=== PATIENT | female | born 1960 | race Caucasian/White ===

== ENCOUNTER → 2016-03-02 | Outpatient (CLI) | payer MEDICARE ==
[~2016-03-02] MED LIST: ABILIFY 10MG TA10 MG PO; AMBIEN CR12.5 MG PO; AMITRIPTYLINE H25 M1 PO; ANECREAM TOP; ASPIRIN 81M81 MG/TA2 PO; ATIVAN 0.50.5 MG/TAB PO; ATIVAN 1MG T1 MG/TAB PO; BRILINTA90 MG PO; CALAN120 MG PO; CEFTIN500 MG PO; CEPHALEXIN500 M1 PO; CIPRO500 MG PO; CIPRODEX OT; CLOPIDOGREL; CLOPIDOGREL PO; CYMBALTA 60MG60 MG PO; DARVOCET N; DEMEROL 50M50 MG/TAB PO; DEPAKOTE ER 50500 MG PO; DESYREL 100MG100 MG PO; DILANTIN 100MG100 MG PO; DILAUDID 2MG TAB2 MG; DILAUDID 2MG TAB2 MG PO; DOXYCYCLINE 10100 MG PO; FIORICET 325 MG1 TA1 PO; FIORICET 325 MG1 TAB PO; FLEXERIL 1010 MG/TAB PO; FLEXERIL10 MG PO; HALCION; HYZAAR 25 MG-101 TAB PO; HYZAAR 50-12.1 UDTAB PO; KLONOPIN 1MG1 MG PO; LABETALOL PO; LAMICTAL 100MG100 MG PO; LAMICTAL 25MG T25 MG PO; LEVAQUIN 250MG250 MG PO; LEVAQUIN 5500 MG/TAB PO; LEXAPRO 10MG10 MG PO; LEXAPRO10 MG PO; LIPITOR 40MG TA40 MG PO; LIPITOR 80MG80 MG PO; LISINOPRIL20 MG PO; LOPRESSOR 550 MG/TAB PO; LORTAB 5/500 501 TAB PO; LORTAB 7.5/5001 TAB PO; LYRICA; MEPEREDINE50 MG PO; MEPERIDINE HCL50 MG PO; METOPROLOL TART75 MG PO; NAPROSYN500 MG PO; NITROSTAT0.4 MG/TAB SL; NORCO 325 MG-51 TAB PO; NORCO 325 MG-7.1 TAB PO; NORVASC2.5 MG PO; OMNICEF 300MG300 MG PO; PEPCID 20MG TAB20 MG PO; PERCOCET 325 MG1 TA2 PO; PHENERGAN 25 TA25 MG; PHENERGAN 25 TA25 MG PO; PHENERGAN W/CO120 ML PO; PHENERGAN50 MG/SUPP PO; PLAVIX 75MG TAB75 MG PO; PREMARIN .3MG0.3 MG PO; PREMARIN 0.60.625 M1 PO; PREMARIN PO; PRILOSEC 20MG20 MG PO; SEROQUEL 1100 MG/TAB PO; TESSALON P100 MG/CAP PO; TOPAMAX 25MG25 M1 PO; TOPAMAX50 MG PO; TOPROL XL 25MG25 MG PO; TYLENOL 325MG325 MG PO; ULTRAM 50MG TAB50 MG PO; VICODIN 5/5001 UDTAB PO; VOLTAREN 75 DR75 MG PO; XANAX0.25 MG PO; ZESTORETIC 12.51 TA1 PO; ZITHROMAX 250M250 MG PO; ZITHROMAX Z PA250 MG PO; [UNRECOGNIZED DRUG - OTHER]; [UNRECOGNIZED DRUG - REMARK]; bp meds
== END ==
LOC: BHSO 09:46
DX: F31.81 Bipolar II disorder (principal)

== ENCOUNTER 2016-03-09 07:53 | Day surgery (SDC) | payer MEDICARE ==
[~2016-03-09] VITALS: Ht 162.6 cm; Wt 80.0 kg
[2016-03-09] VITALS (575 sets, daily range): BP systolic 116–160; BP diastolic 75–101; PULSE 65–89; TEMP 97.2–98.1; O2SAT 92–99
[~2016-03-09 07:53] MED LIST changes: -ATIVAN 0.50.5 MG/TAB PO; -BRILINTA90 MG PO; -CALAN120 MG PO; -LIPITOR 40MG TA40 MG PO; -METOPROLOL TART75 MG PO; -NITROSTAT0.4 MG/TAB SL; -OMNICEF 300MG300 MG PO; -PERCOCET 325 MG1 TA2 PO; -TOPROL XL 25MG25 MG PO
[2016-03-09] MEDS ORDERED: LAMICTAL 100MG100 MG PO (08:04)
[2016-03-09] MEDS ORDERED: SEROQUEL 1100 MG/TAB PO (08:09)
[2016-03-09] MEDS ORDERED: ATIVAN 0.50.5 MG/TAB PO (08:10)
[2016-03-09] MEDS ORDERED: NITROSTAT0.4 MG/TAB SL (08:11)
[2016-03-09] MEDS ORDERED: TOPROL XL 25MG25 MG PO (08:11)
[2016-03-09 08:42] LABS: HEMOGLOBIN 12.4 g/dl (12.5-16.0); MEAN CELL VOLUME 89 fl (80.0-100.0); MEAN CORPUSCULAR HEMOGLOBIN 30 pg (27.0-31.0); MEAN CORPUSCULAR HGB CONC 34 g/dl (33.0-37.0); PLATELET COUNT 280 K/mm3 (130-400); RED BLOOD COUNT 4.14 M/mm3 (4.10-5.30); REDCELL DISTRIBUTION WIDTH-CV 13.7 % (11.5-14.5); WHITE BLOOD COUNT 6.8 K/mm3 (4.8-10.8)
[2016-03-09 08:57] LABS: INR 1.1 (0.8-3.0); PROTHROMBIN TIME 11.8 SECONDS (9.7-12.8)
[2016-03-09 09:05] LABS: CREATININE, serum 0.64 mg/dL (0.52-1.25); POTASSIUM 3.7 mmol/L (3.4-5.0)
[2016-03-09] MEDS ORDERED: LIPITOR 40MG TA40 MG PO (23:07)
[2016-03-09] MEDS ORDERED: BRILINTA90 MG PO (23:11)
[2016-03-10] VITALS (405 sets, daily range): BP systolic 111–126; BP diastolic 69–78; PULSE 61–65; TEMP 98.2–98.5; O2SAT 93–100
[2016-03-10 06:06] LABS: HEMOGLOBIN 12.1 g/dl (12.5-16.0); MEAN CELL VOLUME 90 fl (80.0-100.0); MEAN CORPUSCULAR HEMOGLOBIN 30 pg (27.0-31.0); MEAN CORPUSCULAR HGB CONC 33 g/dl (33.0-37.0); MEAN PLATELET VOLUME 10.4 fl (7.4-10.4); PLATELET COUNT 276 K/mm3 (130-400); RED BLOOD COUNT 4.07 M/mm3 (4.10-5.30); REDCELL DISTRIBUTION WIDTH-CV 13.6 % (11.5-14.5); WHITE BLOOD COUNT 7.1 K/mm3 (4.8-10.8)
[2016-03-10 06:11] LABS: HEMATOCRIT 36.7 % (37.0-47.0)
[2016-03-10 06:20] LABS: CREATININE, serum 0.72 mg/dL (0.52-1.25); POTASSIUM 3.7 mmol/L (3.4-5.0)
== END 2016-03-10 13:20 | disposition home or self-care (01) ==
LOC: EUO 07:53 → COL.RAD 08:00 → ICU 11:45 → EUO 03-10 13:20
PROVIDERS: Internal Medicine Cardiovascular Disease
DX: I25.110 Atherosclerotic heart disease of native coronary artery with unstable angina pectoris (principal); R94.39 Abnormal result of other cardiovascular function study; E78.5 Hyperlipidemia, unspecified
CPT/HCPCS: OP; C1760; C1769; C1874; C1887; C1894; C9600; J1885; J2250; J2405; J3010; Q9967

== ENCOUNTER → 2016-04-26 | Outpatient (CLI) | payer MEDICARE ==
[~2016-04-26] MED LIST changes: +ATIVAN 0.50.5 MG/TAB PO; +BRILINTA90 MG PO; +CALAN120 MG PO; +LIPITOR 40MG TA40 MG PO; +METOPROLOL TART75 MG PO; +NITROSTAT0.4 MG/TAB SL; +OMNICEF 300MG300 MG PO; +PERCOCET 325 MG1 TA2 PO; +TOPROL XL 25MG25 MG PO
== END ==
LOC: BHSO 10:02
DX: F06.32 Mood disorder due to known physiological condition with major depressive-like episode (principal)

== ENCOUNTER 2016-05-22 16:49 | Emergency (ER) | payer MEDICARE ==
[~2016-05-22] VITALS: Ht 165.1 cm; Wt 81.8 kg
[~2016-05-22 16:49] MED LIST changes: -CALAN120 MG PO; -METOPROLOL TART75 MG PO; -OMNICEF 300MG300 MG PO; -PERCOCET 325 MG1 TA2 PO
[2016-05-22 16:55] VITALS: TEMP 98
[2016-05-22 17:21] LABS: BASO # 0.1 (0.0-0.2); BASO % 0.6 % (0.0-2.0); EOS # 0.2 (0.0-0.7); EOS % 1.6 % (0-4.0); GRAN # 6.7 (1.4-6.5); HEMOGLOBIN 12.9 g/dl (12.5-16.0); LYMPH # 2.6 (1.2-3.4); MEAN CELL VOLUME 90 fl (80.0-100.0); MEAN CORPUSCULAR HEMOGLOBIN 31 pg (27.0-31.0); MEAN CORPUSCULAR HGB CONC 34 g/dl (33.0-37.0); MEAN PLATELET VOLUME 9.9 fl (7.4-10.4); MONO # 0.8 (0.1-0.6); MONO % 7.5 % (1.7-9.3); PLATELET COUNT 327 K/mm3 (130-400); RED BLOOD COUNT 4.22 M/mm3 (4.10-5.30); REDCELL DISTRIBUTION WIDTH-CV 14.2 % (11.5-14.5); WHITE BLOOD COUNT 10.3 K/mm3 (4.8-10.8)
[2016-05-22 17:34] LABS: INR 1.1 (0.8-3.0); PROTHROMBIN TIME 12.5 SECONDS (9.7-12.8)
[2016-05-22 17:36] LABS: ALANINE AMINOTRANSFERASE 31 U/L (9-52); ALBUMIN 4.6 gm/dL (3.5-5.0); ALKALINE PHOSPHATASE 96 U/L (50-136); ANION GAP 13 mmol/L (7-16); BILIRUBIN,TOTAL 0.8 mg/dL (0.0-1.0); BLOOD UREA NITROGEN 16 mg/dL (7-17); CALCIUM 9.5 mg/dL (8.4-10.2); CARBON DIOXIDE 24 mmol/L (22-30); CHLORIDE 104 mmol/L (98-107); GLUCOSE 129 mg/dL (74-106); POTASSIUM 3.2 mmol/L (3.4-5.0); SODIUM 141 mmol/L (137-145); TOTAL PROTEIN 7.3 gm/dL (6.4-8.2)
[2016-05-22 17:37] LABS: PARTIAL THROMBOPLASTIN TIME 30.9 SECONDS (26.0-37.0)
[2016-05-22 17:47] LABS: TROPONIN-I < 0.012 ng/mL (0.000-0.034)
[2016-05-22 20:54] VITALS: BP 121/76; PULSE 67
== END 2016-05-22 20:57 | disposition home or self-care (01) ==
LOC: COL.ER 16:49
PROVIDERS: Emergency Medicine
DX: R07.9 Chest pain, unspecified (principal); R53.1 Weakness; I10 Essential (primary) hypertension; I25.10 Atherosclerotic heart disease of native coronary artery without angina pectoris; Z95.5 Presence of coronary angioplasty implant and graft; Z79.82 Long term (current) use of aspirin
CPT/HCPCS: J2270; J2550

== ENCOUNTER 2016-07-05 11:07 | Emergency (ER) | payer MEDICARE ==
[~2016-07-05] VITALS: Ht 162.6 cm; Wt 79.5 kg
[2016-07-05 11:08] VITALS: TEMP 98.3
[2016-07-05 11:40] LABS: INR 1.1 (0.8-3.0); PROTHROMBIN TIME 11.7 SECONDS (9.7-12.8)
[2016-07-05 11:43] LABS: ADJUSTED CALCIUM 8.9 mg/dL (8.4-10.2); ALANINE AMINOTRANSFERASE 35 U/L (9-52); ALBUMIN 3.6 gm/dL (3.5-5.0); ALKALINE PHOSPHATASE 64 U/L (50-136); ANION GAP 9 mmol/L (7-16); BILIRUBIN,TOTAL 0.6 mg/dL (0.0-1.0); BLOOD UREA NITROGEN 19 mg/dL (7-17); CALCIUM 8.6 mg/dL (8.4-10.2); CARBON DIOXIDE 27 mmol/L (22-30); CHLORIDE 103 mmol/L (98-107); CREATININE, serum 0.83 mg/dL (0.52-1.25); GLUCOSE 114 mg/dL (74-106); PARTIAL THROMBOPLASTIN TIME 25.8 SECONDS (26.0-37.0); POTASSIUM 3.3 mmol/L (3.4-5.0); SODIUM 139 mmol/L (137-145); TOTAL PROTEIN 6.2 gm/dL (6.4-8.2)
[2016-07-05 11:44] LABS: BASO % 0.5 % (0.0-2.0); EOS # 0.1 (0.0-0.7); EOS % 1.5 % (0-4.0); GRAN # 5.3 (1.4-6.5); GRAN % 62.8 % (42.2-75.2); HEMATOCRIT 38.2 % (37.0-47.0); HEMOGLOBIN 12.5 g/dl (12.5-16.0); LYMPH # 2.5 (1.2-3.4); LYMPH % 29.4 % (20.0-51.0); MEAN CELL VOLUME 94 fl (80.0-100.0); MEAN CORPUSCULAR HEMOGLOBIN 31 pg (27.0-31.0); MEAN CORPUSCULAR HGB CONC 33 g/dl (33.0-37.0); MEAN PLATELET VOLUME 9.6 fl (7.4-10.4); MONO # 0.5 (0.1-0.6); MONO % 5.3 % (1.7-9.3); PLATELET COUNT 275 K/mm3 (130-400); RED BLOOD COUNT 4.06 M/mm3 (4.10-5.30); REDCELL DISTRIBUTION WIDTH-CV 14.6 % (11.5-14.5); WHITE BLOOD COUNT 8.4 K/mm3 (4.8-10.8)
[2016-07-05 11:55] LABS: TROPONIN-I < 0.012 ng/mL (0.000-0.034)
[2016-07-05 14:49] VITALS: BP 100/69; PULSE 60
== END 2016-07-05 14:51 | disposition home or self-care (01) ==
LOC: COL.ER 11:07
PROVIDERS: Family Medicine
DX: R07.89 Other chest pain (principal); R55 Syncope and collapse; I10 Essential (primary) hypertension; I25.10 Atherosclerotic heart disease of native coronary artery without angina pectoris; I25.2 Old myocardial infarction; M19.90 Unspecified osteoarthritis, unspecified site; F32.9 Major depressive disorder, single episode, unspecified; F41.9 Anxiety disorder, unspecified; G43.909 Migraine, unspecified, not intractable, without status migrainosus; Z87.891 Personal history of nicotine dependence; Z85.038 Personal history of other malignant neoplasm of large intestine; Z90.710 Acquired absence of both cervix and uterus; Z95.5 Presence of coronary angioplasty implant and graft; Z86.73 Personal history of transient ischemic attack (TIA), and cerebral infarction without residual deficits; Z98.890 Other specified postprocedural states
CPT/HCPCS: J3010; J7030

== ENCOUNTER 2016-08-16 09:25 | Emergency (ER) | payer MEDICARE ==
[~2016-08-16] VITALS: Ht 165.1 cm; Wt 78.2 kg
[2016-08-16 09:28] VITALS: TEMP 97.3
[2016-08-16] MEDS ORDERED: CALAN120 MG PO (09:40)
[2016-08-16 09:59] LABS: BASO % 0.4 % (0.0-2.0); EOS # 0.1 (0.0-0.7); GRAN % 69.8 % (42.2-75.2); HEMATOCRIT 37.9 % (37.0-47.0); HEMOGLOBIN 12.9 g/dl (12.5-16.0); LYMPH # 1.5 (1.2-3.4); LYMPH % 21.2 % (20.0-51.0); MEAN CELL VOLUME 91 fl (80.0-100.0); MEAN CORPUSCULAR HEMOGLOBIN 31 pg (27.0-31.0); MEAN CORPUSCULAR HGB CONC 34 g/dl (33.0-37.0); MEAN PLATELET VOLUME 9.6 fl (7.4-10.4); MONO # 0.5 (0.1-0.6); MONO % 7.2 % (1.7-9.3); PLATELET COUNT 285 K/mm3 (130-400); RED BLOOD COUNT 4.19 M/mm3 (4.10-5.30); REDCELL DISTRIBUTION WIDTH-CV 14.4 % (11.5-14.5); WHITE BLOOD COUNT 7.2 K/mm3 (4.8-10.8)
[2016-08-16 10:09] LABS: INR 1.1 (0.8-3.0); PROTHROMBIN TIME 11.8 SECONDS (9.7-12.8)
[2016-08-16 10:12] LABS: PARTIAL THROMBOPLASTIN TIME 26.9 SECONDS (26.0-37.0)
[2016-08-16 10:25] LABS: ADJUSTED CALCIUM 9.2 mg/dL (8.4-10.2); ALANINE AMINOTRANSFERASE 28 U/L (9-52); ALBUMIN 3.9 gm/dL (3.5-5.0); ALKALINE PHOSPHATASE 74 U/L (50-136); ANION GAP 11 mmol/L (7-16); BILIRUBIN,TOTAL 0.6 mg/dL (0.0-1.0); BLOOD UREA NITROGEN 13 mg/dL (7-17); CALCIUM 9.1 mg/dL (8.4-10.2); CARBON DIOXIDE 23 mmol/L (22-30); CHLORIDE 107 mmol/L (98-107); CREATININE, serum 0.61 mg/dL (0.52-1.25); GLUCOSE 129 mg/dL (74-106); LIPASE 29 U/L (23-300); POTASSIUM 3.1 mmol/L (3.4-5.0); SODIUM 141 mmol/L (137-145); TOTAL PROTEIN 6.6 gm/dL (6.4-8.2)
[2016-08-16 10:36] LABS: B-TYPE NATRIURETIC PEPTIDE 41 pg/mL (0-125)
[2016-08-16 10:43] LABS: PROLACTIN 14.1 ng/mL (3.0-18.6)
[2016-08-16 11:04] LABS: TROPONIN-I < 0.012 ng/mL (0.000-0.034)
[2016-08-16 12:58] VITALS: BP 155/110; PULSE 72
== END 2016-08-16 13:02 | disposition short-term general hospital (02) ==
LOC: COL.ER 09:25
PROVIDERS: Emergency Medicine
DX: Z02.89 Encounter for other administrative examinations (principal)
CPT/HCPCS: J1170; J2405

== ENCOUNTER 2016-08-24 15:02 | Emergency (ER) | payer MEDICARE ==
[~2016-08-24] VITALS: Ht 165.1 cm; Wt 77.3 kg
[~2016-08-24 15:02] MED LIST changes: +CALAN120 MG PO
[2016-08-24 15:09] VITALS: TEMP 98.3
[2016-08-24 16:12] LABS: BASO # 0.1 (0.0-0.2); BASO % 1.1 % (0.0-2.0); EOS # 0.1 (0.0-0.7); EOS % 1.7 % (0-4.0); GRAN # 3.9 (1.4-6.5); HEMATOCRIT 39.8 % (37.0-47.0); HEMOGLOBIN 13.1 g/dl (12.5-16.0); LYMPH % 29.8 % (20.0-51.0); MEAN CELL VOLUME 92 fl (80.0-100.0); MEAN CORPUSCULAR HEMOGLOBIN 30 pg (27.0-31.0); MEAN CORPUSCULAR HGB CONC 33 g/dl (33.0-37.0); MEAN PLATELET VOLUME 10.3 fl (7.4-10.4); MONO # 0.5 (0.1-0.6); MONO % 8.1 % (1.7-9.3); PLATELET COUNT 271 K/mm3 (130-400); RED BLOOD COUNT 4.35 M/mm3 (4.10-5.30); REDCELL DISTRIBUTION WIDTH-CV 14.2 % (11.5-14.5); WHITE BLOOD COUNT 6.6 K/mm3 (4.8-10.8)
[2016-08-24 16:24] LABS: ADJUSTED CALCIUM 9.2 mg/dL (8.4-10.2); ALANINE AMINOTRANSFERASE 27 U/L (9-52); ALBUMIN 4.3 gm/dL (3.5-5.0); ALKALINE PHOSPHATASE 70 U/L (50-136); ANION GAP 12 mmol/L (7-16); BILIRUBIN,TOTAL 0.5 mg/dL (0.0-1.0); BLOOD UREA NITROGEN 13 mg/dL (7-17); CALCIUM 9.4 mg/dL (8.4-10.2); CARBON DIOXIDE 20 mmol/L (22-30); CHLORIDE 109 mmol/L (98-107); CREATININE, serum 0.95 mg/dL (0.52-1.25); GLUCOSE 106 mg/dL (74-106); LIPASE 54 U/L (23-300); POTASSIUM 3.7 mmol/L (3.4-5.0); SODIUM 141 mmol/L (137-145); TOTAL PROTEIN 7.2 gm/dL (6.4-8.2)
[2016-08-24 16:25] LABS: C-REACTIVE PROTEIN < 0.5 mg/dL (0.0-0.9)
[2016-08-24 16:29] LABS: PH 6 (5-8); SQUAMOUS EPITHELIAL 0-2 /hpf; URINE APPEARANCE Clear; URINE BACTERIA Rare /hpf; URINE BILIRUBIN Negative (NEGATIVE); URINE BLOOD Negative (NEGATIVE); URINE COLOR Yellow; URINE GLUCOSE Negative (NEGATIVE); URINE KETONE Negative (NEGATIVE); URINE RBC 0-2 /hpf; URINE UROBILINOGEN Negative (NEGATIVE); URINE WBC 0-2 /hpf
[2016-08-24] MEDS ORDERED: METOPROLOL TART75 MG PO (16:49)
[2016-08-24] MEDS ORDERED: ULTRAM 50MG TAB50 MG PO (19:04)
[2016-08-24 19:19] VITALS: BP 121/89; PULSE 70
== END 2016-08-24 19:19 | disposition home or self-care (01) ==
LOC: COL.ER 15:02
PROVIDERS: Family Medicine
DX: K52.9 Noninfective gastroenteritis and colitis, unspecified (principal); K56.7 Ileus, unspecified; I25.10 Atherosclerotic heart disease of native coronary artery without angina pectoris; Z87.891 Personal history of nicotine dependence; Z95.5 Presence of coronary angioplasty implant and graft; F31.9 Bipolar disorder, unspecified
CPT/HCPCS: J1885; J2405; J7030; Q9967

== ENCOUNTER 2016-09-01 11:55 | Emergency (ER) | payer MEDICARE ==
[~2016-09-01] VITALS: Ht 165.1 cm; Wt 77.3 kg
[2016-09-01 11:55] VITALS: TEMP 97.9
[~2016-09-01 11:55] MED LIST changes: +METOPROLOL TART75 MG PO
[2016-09-01 12:16] LABS: BASO # 0.1 (0.0-0.2); BASO % 0.9 % (0.0-2.0); EOS # 0.1 (0.0-0.7); EOS % 1.4 % (0-4.0); GRAN % 64.7 % (42.2-75.2); HEMATOCRIT 40.6 % (37.0-47.0); HEMOGLOBIN 13.5 g/dl (12.5-16.0); LYMPH % 25.3 % (20.0-51.0); MEAN CELL VOLUME 92 fl (80.0-100.0); MEAN CORPUSCULAR HEMOGLOBIN 31 pg (27.0-31.0); MEAN CORPUSCULAR HGB CONC 33 g/dl (33.0-37.0); MEAN PLATELET VOLUME 9.7 fl (7.4-10.4); MONO # 0.6 (0.1-0.6); MONO % 7.1 % (1.7-9.3); PLATELET COUNT 297 K/mm3 (130-400); RED BLOOD COUNT 4.42 M/mm3 (4.10-5.30); REDCELL DISTRIBUTION WIDTH-CV 14.4 % (11.5-14.5); WHITE BLOOD COUNT 7.8 K/mm3 (4.8-10.8)
[2016-09-01 12:37] LABS: ADJUSTED CALCIUM 9.7 mg/dL (8.4-10.2); ALANINE AMINOTRANSFERASE 24 U/L (9-52); ALBUMIN 4.4 gm/dL (3.5-5.0); ALKALINE PHOSPHATASE 71 U/L (50-136); ANION GAP 13 mmol/L (7-16); BILIRUBIN,TOTAL 0.5 mg/dL (0.0-1.0); BLOOD UREA NITROGEN 11 mg/dL (7-17); CARBON DIOXIDE 20 mmol/L (22-30); CHLORIDE 109 mmol/L (98-107); GLUCOSE 104 mg/dL (74-106); POTASSIUM 4.1 mmol/L (3.4-5.0); SODIUM 141 mmol/L (137-145); TOTAL PROTEIN 7.3 gm/dL (6.4-8.2)
[2016-09-01 12:46] LABS: C-REACTIVE PROTEIN < 0.5 mg/dL (0.0-0.9)
[2016-09-01 12:48] LABS: PH 5 (5-8); SQUAMOUS EPITHELIAL 0-2 /hpf; URINE APPEARANCE Clear; URINE BACTERIA None Seen /hpf; URINE BILIRUBIN Negative (NEGATIVE); URINE BLOOD 1+ (NEGATIVE); URINE COLOR Yellow; URINE GLUCOSE Negative (NEGATIVE); URINE KETONE Negative (NEGATIVE); URINE UROBILINOGEN Negative (NEGATIVE); URINE WBC 0-2 /hpf
[2016-09-01 13:11] LABS: PROLACTIN 86.6 ng/mL (3.0-18.6)
[2016-09-01 13:35] LABS: TROPONIN-I < 0.012 ng/mL (0.000-0.034)
[2016-09-01 13:36] LABS: LIPASE 38 U/L (23-300)
[2016-09-01] MEDS ORDERED: PERCOCET 325 MG1 TA2 PO (15:16)
[2016-09-01] MEDS ORDERED: OMNICEF 300MG300 MG PO (15:16)
[2016-09-01 15:35] VITALS: BP 105/70; PULSE 71
== END 2016-09-01 15:38 | disposition home or self-care (01) ==
LOC: COL.ER 11:55
PROVIDERS: Nurse Practitioner
DX: N12 Tubulo-interstitial nephritis, not specified as acute or chronic (principal); R10.31 Right lower quadrant pain; R11.0 Nausea; G40.909 Epilepsy, unspecified, not intractable, without status epilepticus; I25.10 Atherosclerotic heart disease of native coronary artery without angina pectoris; F32.9 Major depressive disorder, single episode, unspecified; Z95.5 Presence of coronary angioplasty implant and graft
CPT/HCPCS: J0696; J1170; J2405; J3010; J7030; Q9967

== ENCOUNTER → 2016-09-29 | Outpatient (CLI) | payer MEDICARE ==
[~2016-09-29] MED LIST changes: +OMNICEF 300MG300 MG PO; +PERCOCET 325 MG1 TA2 PO
== END ==
LOC: BHSO 10:37
DX: F43.10 Post-traumatic stress disorder, unspecified (principal)

== ENCOUNTER → 2017-06-26 | Outpatient (CLI) | payer MEDICARE ==
[~2017-06-26] MED LIST changes: +LINZESS145CAP; +VERAPAMIL120 MG/TA1 PO; +VOLTAREN GEL 1%1 TU TP; +ZANTAC 150MG T150 MG PO
== END ==
LOC: BHSO 09:13
DX: F31.81 Bipolar II disorder (principal)
CPT/HCPCS: G0463

== ENCOUNTER → 2017-09-11 | Outpatient (CLI) | payer MEDICARE | LOC: BHSO 11:11 | DX: F43.10 Post-traumatic stress disorder, unspecified (principal) | CPT/HCPCS: G0463 ==

== ENCOUNTER 2017-11-04 11:05 | Emergency (ER) | payer MEDICARE ==
[~2017-11-04] VITALS: Ht 165.1 cm; Wt 71.8 kg
[2017-11-04 11:09] VITALS: BP 155/82; TEMP 98.9
[2017-11-04] MEDS ORDERED: NEURONTIN100 MG/CAP PO (11:34)
[2017-11-04] MEDS ORDERED: PRISTIQ 50 MG T50 MG PO (11:41)
[2017-11-04 11:51] LABS: BASO # 0.1 (0.0-0.2); BASO % 0.6 % (0.0-2.0); EOS # 0.2 (0.0-0.7); GRAN # 5.9 (1.4-6.5); GRAN % 66.7 % (42.2-75.2); HEMATOCRIT 37.3 % (37.0-47.0); HEMOGLOBIN 12.3 g/dl (12.5-16.0); LYMPH # 2.2 (1.2-3.4); MEAN CELL VOLUME 92 fl (80.0-100.0); MEAN CORPUSCULAR HEMOGLOBIN 30 pg (27.0-31.0); MEAN CORPUSCULAR HGB CONC 33 g/dl (33.0-37.0); MEAN PLATELET VOLUME 9.7 fl (7.4-10.4); MONO # 0.5 (0.1-0.6); MONO % 5.4 % (1.7-9.3); PLATELET COUNT 286 K/mm3 (130-400); RED BLOOD COUNT 4.05 M/mm3 (4.10-5.30); REDCELL DISTRIBUTION WIDTH-CV 14.1 % (11.5-14.5)
[2017-11-04 12:12] LABS: ERYTHROCYTE SEDIMENTATION RATE 9 mm/hr (0-30)
[2017-11-04 12:18] LABS: ALANINE AMINOTRANSFERASE 22 U/L (9-52); ALBUMIN 3.7 gm/dL (3.5-5.0); ALKALINE PHOSPHATASE 76 U/L (50-136); ANION GAP 6 mmol/L (7-16); AST,SGOT 21 U/L (15-37); BILIRUBIN,TOTAL 0.2 mg/dL (0.0-1.0); BLOOD UREA NITROGEN 8 mg/dL (7-17); C-REACTIVE PROTEIN 0.9 mg/dL (0.0-0.9); CALCIUM 8.5 mg/dL (8.4-10.2); CARBON DIOXIDE 26 mmol/L (22-30); CHLORIDE 105 mmol/L (98-107); CREATININE, serum 0.63 mg/dL (0.52-1.25); GLUCOSE 143 mg/dL (74-106); LIPASE 174 U/L (23-300); MAGNESIUM 1.9 mg/dL (1.6-2.3); PHOSPHOROUS 3.7 mg/dL (2.5-4.5); POTASSIUM 3.6 mmol/L (3.4-5.0); SODIUM 137 mmol/L (137-145); TOTAL PROTEIN 6.5 gm/dL (6.4-8.2)
[2017-11-04 12:29] LABS: TROPONIN-I < 0.012 ng/mL (0.000-0.034)
[2017-11-04 13:50] VITALS: PULSE 86
== END 2017-11-04 13:50 | disposition home or self-care (01) ==
LOC: COL.ER 11:05
PROVIDERS: Emergency Medicine
DX: M79.2 Neuralgia and neuritis, unspecified (principal); M79.7 Fibromyalgia; I25.10 Atherosclerotic heart disease of native coronary artery without angina pectoris; Z86.73 Personal history of transient ischemic attack (TIA), and cerebral infarction without residual deficits; Z79.82 Long term (current) use of aspirin
CPT/HCPCS: J1170

== ENCOUNTER 2017-11-06 09:15 | Emergency (ER) | payer MEDICARE ==
[~2017-11-06] VITALS: Ht 165.1 cm; Wt 73.8 kg
[~2017-11-06 09:15] MED LIST changes: +NEURONTIN100 MG/CAP PO; +PRISTIQ 50 MG T50 MG PO
[2017-11-06 09:19] VITALS: TEMP 99
[2017-11-06 11:06] VITALS: BP 139/93; PULSE 66
[2017-11-07] MEDS ORDERED: CYMBALTA 60MG60 MG PO (00:41)
[2017-11-07] MEDS ORDERED: PLAVIX 75MG TAB75 MG PO (17:28)
[2017-11-07] MEDS ORDERED: MACROBID 1100 MG/CAP PO (17:28)
[2017-11-07] MEDS ORDERED: KEPPRA 500MG500 MG PO (17:29)
[2017-11-07] MEDS ORDERED: ASPIRIN 81M81 MG/TA2 PO (17:29)
[2017-11-07] MEDS ORDERED: LIPITOR 40MG TA40 MG PO (17:39)
[2017-11-07] MEDS ORDERED: TOPROL XL 25MG25 MG PO (17:39)
== END 2017-11-06 11:07 | disposition home or self-care (01) ==
LOC: COL.ER 09:15
DX: I10 Essential (primary) hypertension (principal); M79.7 Fibromyalgia; I25.10 Atherosclerotic heart disease of native coronary artery without angina pectoris; F41.9 Anxiety disorder, unspecified; Z95.9 Presence of cardiac and vascular implant and graft, unspecified; Z90.710 Acquired absence of both cervix and uterus; Z98.890 Other specified postprocedural states; Z79.82 Long term (current) use of aspirin
CPT/HCPCS: J1885; J2060

== ENCOUNTER 2017-11-06 18:29 | Observation (INO) | payer MEDICARE ==
[~2017-11-06] VITALS: Ht 165.1 cm; Wt 72.4 kg
[2017-11-06 19:06] LABS: BASO % 0.4 % (0.0-2.0); EOS # 0.2 (0.0-0.7); EOS % 1.5 % (0-4.0); GRAN # 5.6 (1.4-6.5); GRAN % 57.5 % (42.2-75.2); HEMATOCRIT 40.9 % (37.0-47.0); HEMOGLOBIN 13.6 g/dl (12.5-16.0); LYMPH # 2.9 (1.2-3.4); LYMPH % 29.7 % (20.0-51.0); MEAN CELL VOLUME 91 fl (80.0-100.0); MEAN CORPUSCULAR HEMOGLOBIN 30 pg (27.0-31.0); MEAN CORPUSCULAR HGB CONC 33 g/dl (33.0-37.0); MEAN PLATELET VOLUME 9.7 fl (7.4-10.4); MONO % 10.5 % (1.7-9.3); PLATELET COUNT 321 K/mm3 (130-400); RED BLOOD COUNT 4.52 M/mm3 (4.10-5.30)
[2017-11-06 19:25] LABS: COLLECTION METHOD CLEAN CATCH
[2017-11-06 19:27] LABS: ALANINE AMINOTRANSFERASE 26 U/L (9-52); ALBUMIN 4.1 gm/dL (3.5-5.0); ALKALINE PHOSPHATASE 80 U/L (50-136); ANION GAP 7 mmol/L (7-16); AST,SGOT 24 U/L (15-37); BILIRUBIN,TOTAL 0.3 mg/dL (0.0-1.0); BLOOD UREA NITROGEN 11 mg/dL (7-17); CALCIUM 9.4 mg/dL (8.4-10.2); CARBON DIOXIDE 28 mmol/L (22-30); CHLORIDE 104 mmol/L (98-107); CREATININE, serum 0.79 mg/dL (0.52-1.25); GLUCOSE 117 mg/dL (74-106); POTASSIUM 4.2 mmol/L (3.4-5.0); SODIUM 139 mmol/L (137-145); TOTAL PROTEIN 7.5 gm/dL (6.4-8.2)
[2017-11-06 19:32] LABS: MUCOUS Present /lpf; PH 6 (5-8); SQUAMOUS EPITHELIAL 0-2 /hpf; URINE APPEARANCE Hazy; URINE BACTERIA Occasional /hpf; URINE BILIRUBIN Negative (NEGATIVE); URINE BLOOD 2+ (NEGATIVE); URINE COLOR Yellow; URINE GLUCOSE Negative (NEGATIVE); URINE KETONE Negative (NEGATIVE); URINE LEUKOCYTE ESTERASE Negative (NEGATIVE); URINE NITRATE Positive (NEGATIVE); URINE PROTEIN(semi-quant) 1+ (NEGATIVE); URINE UROBILINOGEN Negative (NEGATIVE)
[2017-11-06 19:43] LABS: TROPONIN-I < 0.012 ng/mL (0.000-0.034)
[2017-11-07] MEDS ORDERED: CYMBALTA 60MG60 MG PO (00:41)
[2017-11-07 01:06] VITALS: BP 151/83; PULSE 69; TEMP 98.6
[2017-11-07 03:31] VITALS: BP 130/88; PULSE 65; TEMP 98.5
[2017-11-07 04:49] LABS: TRICYCLIC ANTIDEPRESS URINE NEGATIVE
[2017-11-07 07:06] VITALS: BP 120/64; PULSE 75; TEMP 97.8
[2017-11-07 08:34] LABS: CHOLESTEROL RISK RATIO 5.2
[2017-11-07 15:06] VITALS: BP 134/74; PULSE 80; TEMP 98.6
[2017-11-07] MEDS ORDERED: MACROBID 1100 MG/CAP PO (17:28)
[2017-11-07] MEDS ORDERED: PLAVIX 75MG TAB75 MG PO (17:28)
[2017-11-07] MEDS ORDERED: ASPIRIN 81M81 MG/TA2 PO (17:29)
[2017-11-07] MEDS ORDERED: KEPPRA 500MG500 MG PO (17:29)
[2017-11-07] MEDS ORDERED: TOPROL XL 25MG25 MG PO (17:39)
[2017-11-07] MEDS ORDERED: LIPITOR 40MG TA40 MG PO (17:39)
== END 2017-11-07 19:24 | disposition home or self-care (01) ==
LOC: COL.ER 18:29 → MEDICAL 23:18
PROVIDERS: Emergency Medicine; Nurse Practitioner
DX: I16.0 Hypertensive urgency (principal); R56.9 Unspecified convulsions; I10 Essential (primary) hypertension; I25.10 Atherosclerotic heart disease of native coronary artery without angina pectoris; N39.0 Urinary tract infection, site not specified; E78.5 Hyperlipidemia, unspecified; F12.20 Cannabis dependence, uncomplicated; Z90.49 Acquired absence of other specified parts of digestive tract; Z90.710 Acquired absence of both cervix and uterus; Z86.73 Personal history of transient ischemic attack (TIA), and cerebral infarction without residual deficits; Z85.038 Personal history of other malignant neoplasm of large intestine; Z87.891 Personal history of nicotine dependence; Z88.0 Allergy status to penicillin; Z88.2 Allergy status to sulfonamides; Z80.0 Family history of malignant neoplasm of digestive organs
CPT/HCPCS: A9585; G0378; J1650; J1953; J2405; J7030

== ENCOUNTER → 2018-03-21 | Outpatient (CLI) | payer MEDICARE ==
[~2018-03-21] MED LIST changes: +KEPPRA 500MG500 MG PO; +MACROBID 1100 MG/CAP PO
== END ==
LOC: BHSO 14:41
DX: F43.10 Post-traumatic stress disorder, unspecified (principal)
CPT/HCPCS: G0463

== ENCOUNTER → 2018-10-21 | Outpatient (CLI) | payer MEDICARE | LOC: BHSO 09:02 | DX: F31.81 Bipolar II disorder (principal) | CPT/HCPCS: G0463 ==

== ENCOUNTER 2019-06-02 19:24 | Inpatient (IN) | payer MEDICARE ==
[~2019-06-02] VITALS: Ht 165.1 cm; Wt 79.2 kg
[2019-06-02 19:51] LABS: BASO # 0.1 (0.0-0.2); EOS # 0.3 (0.0-0.7); EOS % 3.3 % (0-4.0); GRAN # 4.9 (1.4-6.5); GRAN % 52.3 % (42.2-75.2); HEMATOCRIT 39.2 % (37.0-47.0); HEMOGLOBIN 12.9 g/dl (12.5-16.0); LYMPH # 3.3 (1.2-3.4); MEAN CELL VOLUME 88 fl (80.0-100.0); MEAN CORPUSCULAR HEMOGLOBIN 29 pg (27.0-31.0); MEAN CORPUSCULAR HGB CONC 33 g/dl (33.0-37.0); MEAN PLATELET VOLUME 9.6 fl (7.4-10.4); MONO # 0.8 (0.1-0.6); MONO % 8.2 % (1.7-9.3); PLATELET COUNT 348 K/mm3 (130-400); RED BLOOD COUNT 4.45 M/mm3 (4.10-5.30); REDCELL DISTRIBUTION WIDTH-CV 14.9 % (11.5-14.5)
[2019-06-02 19:53] LABS: INR 0.9 (0.8-3.0); PROTHROMBIN TIME 10.6 SECONDS (9.7-12.8)
[2019-06-02 19:55] LABS: PARTIAL THROMBOPLASTIN TIME 32.2 SECONDS (26.0-37.0)
[2019-06-02 19:58] LABS: ALANINE AMINOTRANSFERASE 19 U/L (4-34); ALBUMIN 4.2 gm/dL (3.5-5.0); ALKALINE PHOSPHATASE 91 U/L (50-136); ANION GAP 6 mmol/L (7-16); AST,SGOT 25 U/L (15-37); BILIRUBIN,TOTAL 0.4 mg/dL (0.0-1.0); BLOOD UREA NITROGEN 11 mg/dL (7-17); CARBON DIOXIDE 25 mmol/L (22-30); CHLORIDE 107 mmol/L (98-107); GLUCOSE 96 mg/dL (74-106); POTASSIUM 4.2 mmol/L (3.4-5.0); SODIUM 138 mmol/L (137-145); TOTAL PROTEIN 7.4 gm/dL (6.4-8.2)
[2019-06-02 20:14] LABS: TROPONIN-I < 0.012 ng/mL (0.000-0.035)
--- NOTE | 2019-06-02 23:55 | NUR ---
RECIEVED REPORT FROM CHRISS GOOD. PATIENT STABLE AT THIS TIME.
[2019-06-03] VITALS (251 sets, daily range): BP systolic 122–179; BP diastolic 58–101; PULSE 56–81; TEMP 97.4–98.7; O2SAT 83–100
--- NOTE | 2019-06-03 00:20 | NUR ---
PATIENT ARRIVED ON STRETCHER WITH CHRISS RINALDI. PATIENT STABLE AT THIS TIME AND ON A HEPARIN AND NITRO GTT WELL NS IVF.
[2019-06-03 00:33] LABS: MAGNESIUM 2.4 mg/dL (1.6-2.3)
[2019-06-03] MEDS ORDERED: KLONOPIN 0.5MG0.5 MG PO (01:10)
--- NOTE | 2019-06-03 03:36 | NUR ---
PATIENT HAD A MIGRAINE AND HAD SEVERE NAUSEA WITH VOMITTING
[2019-06-03 06:12] LABS: BASO # 0.1 (0.0-0.2); BASO % 0.8 % (0.0-2.0); EOS # 0.2 (0.0-0.7); EOS % 2.3 % (0-4.0); GRAN # 5.1 (1.4-6.5); GRAN % 61.2 % (42.2-75.2); HEMOGLOBIN 12.2 g/dl (12.5-16.0); LYMPH # 2.4 (1.2-3.4); LYMPH % 28.6 % (20.0-51.0); MEAN CELL VOLUME 89 fl (80.0-100.0); MEAN CORPUSCULAR HEMOGLOBIN 30 pg (27.0-31.0); MEAN CORPUSCULAR HGB CONC 33 g/dl (33.0-37.0); MEAN PLATELET VOLUME 9.5 fl (7.4-10.4); MONO # 0.6 (0.1-0.6); MONO % 6.9 % (1.7-9.3); PLATELET COUNT 314 K/mm3 (130-400); RED BLOOD COUNT 4.13 M/mm3 (4.10-5.30); REDCELL DISTRIBUTION WIDTH-CV 14.9 % (11.5-14.5)
[2019-06-03 06:15] LABS: HEMATOCRIT 36.9 % (37.0-47.0)
[2019-06-03 06:22] LABS: ALANINE AMINOTRANSFERASE 17 U/L (4-34); ALBUMIN 3.9 gm/dL (3.5-5.0); ALKALINE PHOSPHATASE 88 U/L (50-136); ANION GAP 4 mmol/L (7-16); AST,SGOT 22 U/L (15-37); BILIRUBIN,TOTAL 0.4 mg/dL (0.0-1.0); BLOOD UREA NITROGEN 12 mg/dL (7-17); CALCIUM 8.8 mg/dL (8.4-10.2); CARBON DIOXIDE 26 mmol/L (22-30); CHLORIDE 107 mmol/L (98-107); CHOLESTEROL 291 mg/dL (120-200); CHOLESTEROL RISK RATIO 4.7; CREATININE, serum 0.52 (0.52-1.25); GLUCOSE 116 mg/dL (74-106); HDL CHOLESTEROL 61 mg/dL; LDL CHOLESTEROL 197 mg/dL; POTASSIUM 4.2 mmol/L (3.4-5.0); SODIUM 137 mmol/L (137-145); TOTAL PROTEIN 6.8 gm/dL (6.4-8.2); TRIGLYCERIDE 166 mg/dL
[2019-06-03 06:34] LABS: TROPONIN-I < 0.012 ng/mL (0.000-0.035)
--- NOTE | 2019-06-03 07:30 | NUR ---
GAVE REPORT TO CHRISS CAST.
--- NOTE | 2019-06-03 07:47 | NUR ---
Pt nauseated and vomiting complaining of headache 09/14 - nitroglycerine gtt infusing at 5mcg/min MD Sophia called - Nitroglycerine gtt ordered to be discontinued - order carried out. Pt education provided
--- NOTE | 2019-06-03 08:52 | NUR ---
Pt to CathLab with CHRISS Barnes
--- NOTE | 2019-06-03 09:13 | NUR ---
SEE MERGE DOCUMENTATION FOR MEDICATION ADMINISTRATION TIMES AND INTRA/POST PROCEDURE SEDATION ASSESSMENT. PLAN FOR RIGHT FEMORAL ACCESS PER MD.
--- NOTE | 2019-06-03 10:10 | NUR ---
Patient returns from label drier. Right groin site with dressing CDI, no hematoma noted. Pulses palpable BLE. Reviewed bedrest/lay flat for four hours patient, verbalized understanding.
--- NOTE | 2019-06-03 11:05 | NUR ---
ART met with the patient to discuss discharge plan. The patient lives in [place] with her , Willie Bird (ph#[phone]), and their five adopted children. She reports independence with ADLs and does not have any DME. The patient does not have a PCP. She reports that she would like to get set up with her 's PCP, Dr. Chapin Petersen. ART contacted Dr. Petersen's office. The testing lead reports that Dr. Petersen is not accepting any patient's at this time, but his RN is going to check with him to see if he would accept the patient. She informed ART to call after 1400 to follow up on his decision. SW informed the patient of this. ART offered the patient a list of the different providers if [place], if Dr. Petersen is not able to accept. The patient was not interested in taking the list at this time. She receives her medications at [facility] and she reports difficulties affording her medications. She states that she does not have presciption coverage on her insurance. She states that she plans to enroll in presciption coverage. She states that she utilizes [facility]. ART discussed [facility] and provided her with their contact information. The patient reports that she is on social security disability. ART discussed applying for Medicaid. The patient was interested in this. ART consulted Financial Counselor, Ankit. The patient does not have advanced directives completed. The patient plans to return back home with her family upon discharge. SW to continue to follow.
--- NOTE | 2019-06-03 13:07 | NUR ---
Patient nauseated and vomiting.
--- NOTE | 2019-06-03 13:55 | NUR ---
Patient alert and oriented, answers questions appropriately. Patient has had multiple epidoses of anxiety throughout the morning. Appears to be resting comfortably in bed at this time.
--- NOTE | 2019-06-03 14:14 | NUR ---
ART contacted Dr. Petersen's office to follow up on his decision. The traveling engineer reports that Dr. Petersen did accept the patient and that his RN would be the one to schedule an appointment. She transferred ART to Dr. Petersen's RN. ART left a voicemail for his RN. ART to update the patient and will continue to follow.
--- NOTE | 2019-06-03 16:18 | NUR ---
ART received a phone call back from Dr. Petersen's RN. His RN reports that they do not like to make hospital follow up appointments, until the patient is ready to discharge. She requested that ART or hospital staff call back and schedule an appointment when ready to discharge. ART notified the bacteriologist medical of this. SW to continue to follow.
--- NOTE | 2019-06-03 18:51 | NUR ---
Patient arrived to unit and has been very nauseous. Patient complaining of a migrain and reporting that morphine was not touching the pain. Call placed to Dr. Pimentel see one time order for Tordal and Vistaril. Will continue to monitor.
--- NOTE | 2019-06-03 19:01 | NUR ---
Patient having anxiety and was given ativan with good effect. Patient currently sleeping in bed, migrain has deminished and patient's nausea has gone away. Patient refused her supper meal due to the nausea. Patient denies questions at this time.
--- NOTE | 2019-06-03 19:30 | NUR ---
Patient assessed at this time. Alert and oriented x 4, and able to make needs known. Complained of level 5 headache, and given PRN APAP. Peripheral IVs to left and right AC. Denies SOB and dyspnea. LS CTA. Respirations even and unlabored. HRR. Telemetry in place. Capillary refill less than 3 seconds. Non-tenting skin turgor. BSAx4. Abdomen soft and non-tender. No edema. Dressing to right groin has small amount of bloody drainage at top and right side. Boarders marked. No increase in size. Voices no questions, needs, or concerns at this time. Resting in bed with call light within reach.
[2019-06-04 00:06] VITALS: BP 91/49; PULSE 76; TEMP 98.6
[2019-06-04 00:13] VITALS: BP 104/62
[2019-06-04 04:31] VITALS: BP 102/62; PULSE 72; TEMP 97.9
--- NOTE | 2019-06-04 05:27 | NUR ---
Patient has been resting in bed with eyes closed. Has denied having headaches and pain since receiving PRN APAP last night. Reports that she slept much better last night. Voices no questions, needs, or concerns at this time. Call light is within reach.
[2019-06-04 07:58] VITALS: BP 111/60; PULSE 88; TEMP 97.4
--- NOTE | 2019-06-04 08:20 | NUR ---
PT IN BED COMPLAINING OF A HEADACHE 02/14, REQUESTING TYLENOL WITH MORNING MEDICATIONS, MORNING MEDS GIVEN, ASSESSMENT PERFORMED, PT R GROIN DID NOT DRAIN PAST SHARPIE BORDER. DRY AND INTACT. PT IN PLEASANT MOOD DISCUSSING DISCHARGE BACK TO HER FAMILY. BED IN LOW POSITION, WATER AT BEDSIDE, CALL LIGHT AND PHONE WITHIN REACH, NO OTHER NEEDS AT THIS TIME.
--- NOTE | 2019-06-04 11:19 | NUR ---
First visit from the deputy county clerk. No needs right now.
[2019-06-04] MEDS ORDERED: TOPROL XL 25MG25 MG PO (11:53)
[2019-06-04] MEDS ORDERED: PRINIVIL5 MG PO (11:53)
[2019-06-04] MEDS ORDERED: LIPITOR 40MG TA40 MG PO (11:53)
--- NOTE | 2019-06-04 12:31 | NUR ---
Senior Science Consultant attended clinical rounds with the team. Patient to discharge home today. ART scheduled a follow up appointment with Dr. Petersen's midlevel, [facility] for 06/11/19 @ 900. SW provided appointment to patient and to the community development officer. No additional needs at this time.
--- NOTE | 2019-06-04 13:24 | NUR ---
DISCHARGE EDUCATION PROVIDED, IV DISCONTINUED, PT CALLED TO PICK HER UP. PT WALKED OUT WITH [facility], WITNESSED GETTING INTO PT VEHICLE WITH AND DAUGHTER.
== END 2019-06-04 13:26 | disposition home or self-care (01) | DRG 287 ==
LOC: COL.ER 19:24 → ICU 23:13 → IMCU 06-03 09:57 → MEDICAL 06-03 15:10
PROVIDERS: Emergency Medicine; Nurse Practitioner Family; ADMIT Internal Medicine
PROC: 4A023N8 Measurement of Cardiac Sampling and Pressure, Bilateral, Percutaneous Approach (ICD-10-PCS; principal; 2019-06-03)
PROC: B2151ZZ Fluoroscopy of Left Heart using Low Osmolar Contrast (ICD-10-PCS; 2019-06-03)
PROC: B2111ZZ Fluoroscopy of Multiple Coronary Arteries using Low Osmolar Contrast (ICD-10-PCS; 2019-06-03)
PROC: 4A023N6 Measurement of Cardiac Sampling and Pressure, Right Heart, Percutaneous Approach (ICD-10-PCS; 2019-06-03)
DX: I16.0 Hypertensive urgency (principal); I69.951 Hemiplegia and hemiparesis following unspecified cerebrovascular disease affecting right dominant side; I25.10 Atherosclerotic heart disease of native coronary artery without angina pectoris; E78.5 Hyperlipidemia, unspecified; G40.909 Epilepsy, unspecified, not intractable, without status epilepticus; F31.9 Bipolar disorder, unspecified; G47.00 Insomnia, unspecified; Z95.818 Presence of other cardiac implants and grafts; Z85.038 Personal history of other malignant neoplasm of large intestine; Z90.49 Acquired absence of other specified parts of digestive tract; Z90.710 Acquired absence of both cervix and uterus; Z87.891 Personal history of nicotine dependence; Z91.14 Patient's other noncompliance with medication regimen
CPT/HCPCS: 99223-AI; 99239; J0360; J1644; J1885; J2060; J2250; J2270; J2405; J2550; J3010; J7030; Q9967

== ENCOUNTER → 2019-06-05 | Outpatient (CLI) | payer MEDICARE ==
[~2019-06-05] MED LIST changes: +ATARAX50 MG PO; +CLEOCIN HCL300 MG PO; +COREG 6.256.25 MG/TA PO; +KEPPRA1000 MG PO; +KLONOPIN 0.5MG0.5 MG PO; +LEVAQUIN 750MG750 M1 PO; +PRINIVIL10 MG PO; +PRINIVIL5 MG PO
== END ==
LOC: BHSO 11:20
DX: F43.10 Post-traumatic stress disorder, unspecified (principal)
CPT/HCPCS: G0463

== ENCOUNTER 2019-06-09 19:17 | Emergency (ER) | payer MEDICARE ==
[~2019-06-09] VITALS: Ht 165.1 cm; Wt 79.5 kg
[~2019-06-09 19:17] MED LIST changes: -ATARAX50 MG PO; -CLEOCIN HCL300 MG PO; -COREG 6.256.25 MG/TA PO; -KEPPRA1000 MG PO; -LEVAQUIN 750MG750 M1 PO; -PRINIVIL10 MG PO
[2019-06-09] MEDS ORDERED: LIPITOR 40MG TA40 MG PO (19:51)
[2019-06-09] MEDS ORDERED: TOPROL XL 25MG25 MG PO (19:51)
[2019-06-09] MEDS ORDERED: PRINIVIL5 MG PO (19:52)
[2019-06-09] MEDS ORDERED: LAMICTAL 25MG T25 MG PO (19:55)
[2019-06-09 19:57] LABS: BASO # 0.1 (0.0-0.2); BASO % 0.8 % (0.0-2.0); EOS # 0.3 (0.0-0.7); EOS % 3.1 % (0-4.0); GRAN # 5.5 (1.4-6.5); GRAN % 55.7 % (42.2-75.2); HEMATOCRIT 37.3 % (37.0-47.0); HEMOGLOBIN 12.1 g/dl (12.5-16.0); LYMPH # 3.2 (1.2-3.4); LYMPH % 32.8 % (20.0-51.0); MEAN CELL VOLUME 89 fl (80.0-100.0); MEAN CORPUSCULAR HEMOGLOBIN 29 pg (27.0-31.0); MEAN CORPUSCULAR HGB CONC 32 g/dl (33.0-37.0); MEAN PLATELET VOLUME 9.7 fl (7.4-10.4); MONO # 0.7 (0.1-0.6); MONO % 7.2 % (1.7-9.3); PLATELET COUNT 333 K/mm3 (130-400); RED BLOOD COUNT 4.19 M/mm3 (4.10-5.30); REDCELL DISTRIBUTION WIDTH-CV 14.9 % (11.5-14.5)
[2019-06-09 20:01] LABS: ALANINE AMINOTRANSFERASE 17 U/L (4-34); ALBUMIN 4.3 gm/dL (3.5-5.0); ALKALINE PHOSPHATASE 92 U/L (50-136); ANION GAP 6 mmol/L (7-16); AST,SGOT 21 U/L (15-37); BILIRUBIN,TOTAL 0.2 mg/dL (0.0-1.0); BLOOD UREA NITROGEN 15 mg/dL (7-17); CALCIUM 9.2 mg/dL (8.4-10.2); CARBON DIOXIDE 27 mmol/L (22-30); CHLORIDE 105 mmol/L (98-107); CREATININE, serum 0.73 (0.52-1.25); GLUCOSE 109 mg/dL (74-106); LIPASE 164 U/L (23-300); POTASSIUM 4.1 mmol/L (3.4-5.0); SODIUM 138 mmol/L (137-145); TOTAL PROTEIN 7.3 gm/dL (6.4-8.2)
[2019-06-09 20:20] LABS: TROPONIN-I < 0.012 ng/mL (0.000-0.035)
[2019-06-09 22:32] VITALS: BP 144/93; PULSE 72; TEMP 98
== END 2019-06-09 22:21 | disposition home or self-care (01) ==
LOC: COL.ER 19:17
PROVIDERS: Emergency Medicine
DX: R07.89 Other chest pain (principal); Z95.9 Presence of cardiac and vascular implant and graft, unspecified; Z79.82 Long term (current) use of aspirin
CPT/HCPCS: J1170; J1885; J2060; J7030

== ENCOUNTER 2019-07-03 11:24 | Emergency (ER) | payer MEDICARE ==
[~2019-07-03] VITALS: Ht 165.1 cm; Wt 81.8 kg
[~2019-07-03 11:24] MED LIST changes: +ATARAX50 MG PO; +CLEOCIN HCL300 MG PO; +COREG 6.256.25 MG/TA PO; +KEPPRA1000 MG PO; +LEVAQUIN 750MG750 M1 PO; +PRINIVIL10 MG PO
[2019-07-03 11:32] VITALS: TEMP 98.8
[2019-07-03 12:30] LABS: BASO # 0.1 (0.0-0.2); BASO % 0.8 % (0.0-2.0); EOS # 0.3 (0.0-0.7); EOS % 3.4 % (0-4.0); GRAN # 5.3 (1.4-6.5); GRAN % 61.3 % (42.2-75.2); HEMOGLOBIN 11.2 g/dl (12.5-16.0); LYMPH # 2.3 (1.2-3.4); LYMPH % 26.3 % (20.0-51.0); MEAN CELL VOLUME 89 fl (80.0-100.0); MEAN CORPUSCULAR HEMOGLOBIN 29 pg (27.0-31.0); MEAN CORPUSCULAR HGB CONC 32 g/dl (33.0-37.0); MEAN PLATELET VOLUME 9.4 fl (7.4-10.4); MONO # 0.7 (0.1-0.6); MONO % 7.8 % (1.7-9.3); PLATELET COUNT 328 K/mm3 (130-400); RED BLOOD COUNT 3.88 M/mm3 (4.10-5.30)
[2019-07-03 12:39] LABS: HEMATOCRIT 34.6 % (37.0-47.0)
[2019-07-03 12:41] LABS: ALANINE AMINOTRANSFERASE 18 U/L (4-34); ALBUMIN 3.9 gm/dL (3.5-5.0); ALKALINE PHOSPHATASE 81 U/L (50-136); ANION GAP 6 mmol/L (7-16); AST,SGOT 22 U/L (15-37); BILIRUBIN,TOTAL 0.2 mg/dL (0.0-1.0); BLOOD UREA NITROGEN 11 mg/dL (7-17); CALCIUM 8.7 mg/dL (8.4-10.2); CARBON DIOXIDE 25 mmol/L (22-30); CHLORIDE 106 mmol/L (98-107); CREATININE, serum 0.56 (0.52-1.25); GLUCOSE 109 mg/dL (74-106); INR 0.9 (0.8-3.0); POTASSIUM 4.2 mmol/L (3.4-5.0); PROTHROMBIN TIME 10.5 SECONDS (9.7-12.8); SODIUM 137 mmol/L (137-145); TOTAL PROTEIN 6.8 gm/dL (6.4-8.2)
[2019-07-03 12:53] LABS: TROPONIN-I < 0.012 ng/mL (0.000-0.035)
[2019-07-03] MEDS ORDERED: ANUSOL-HC SUPPO25 MG RC (12:58)
[2019-07-03] MEDS ORDERED: COLACE 100100 MG/CAP PO (12:58)
[2019-07-03 13:10] VITALS: BP 124/89; PULSE 81
== END 2019-07-03 13:05 | disposition home or self-care (01) ==
LOC: COL.ER 11:24
PROVIDERS: Emergency Medicine
DX: K62.5 Hemorrhage of anus and rectum (principal); G89.29 Other chronic pain; R07.9 Chest pain, unspecified; I25.10 Atherosclerotic heart disease of native coronary artery without angina pectoris; Z79.82 Long term (current) use of aspirin

== ENCOUNTER 2019-08-30 14:33 | Emergency (ER) | payer MEDICARE ==
[~2019-08-30] VITALS: Ht 165.1 cm; Wt 83.6 kg
[~2019-08-30 14:33] MED LIST changes: +ANUSOL-HC SUPPO25 MG RC; +COLACE 100100 MG/CAP PO
[2019-08-30 14:52] VITALS: BP 184/90; TEMP 98.5
[2019-08-30] MEDS ORDERED: ASPIRIN E.C. 8181 MG PO (15:12)
[2019-08-30] MEDS ORDERED: LAMICTAL XR50 MG PO (15:15)
[2019-08-30] MEDS ORDERED: KEPPRA1000 MG PO (15:15)
[2019-08-30] MEDS ORDERED: CEPHALEXIN500 M1 PO (15:17)
[2019-08-30] MEDS ORDERED: MYCOSTATIN100000 U/1 TP (15:17)
[2019-08-30 15:31] VITALS: PULSE 91
== END 2019-08-30 15:31 | disposition home or self-care (01) ==
LOC: COL.ER 14:33
DX: L03.113 Cellulitis of right upper limb (principal); Z88.0 Allergy status to penicillin; Z79.82 Long term (current) use of aspirin

== ENCOUNTER 2019-10-14 18:36 | Emergency (ER) | payer MEDICARE ==
[~2019-10-14] VITALS: Ht 165.1 cm; Wt 84.1 kg
[~2019-10-14 18:36] MED LIST changes: +ASPIRIN E.C. 8181 MG PO; +LAMICTAL XR50 MG PO; +MYCOSTATIN100000 U/1 TP
[2019-10-14 18:37] VITALS: TEMP 98.5
[2019-10-14 19:34] LABS: BASO # 0.1 (0.0-0.2); BASO % 0.7 % (0.0-2.0); EOS # 0.2 (0.0-0.7); EOS % 1.6 % (0-4.0); GRAN # 5.3 (1.4-6.5); GRAN % 55.3 % (42.2-75.2); LYMPH # 3.2 (1.2-3.4); LYMPH % 33.4 % (20.0-51.0); MEAN CELL VOLUME 86 fl (80.0-100.0); MEAN CORPUSCULAR HEMOGLOBIN 28 pg (27.0-31.0); MEAN CORPUSCULAR HGB CONC 33 g/dl (33.0-37.0); MEAN PLATELET VOLUME 10.1 fl (7.4-10.4); MONO # 0.9 (0.1-0.6); MONO % 8.8 % (1.7-9.3); PLATELET COUNT 352 K/mm3 (130-400); RED BLOOD COUNT 4.68 M/mm3 (4.10-5.30); REDCELL DISTRIBUTION WIDTH-CV 15.8 % (11.5-14.5)
[2019-10-14 19:47] LABS: ALANINE AMINOTRANSFERASE 23 U/L (4-34); ALBUMIN 4.7 gm/dL (3.5-5.0); ALKALINE PHOSPHATASE 95 U/L (50-136); ANION GAP 10 mmol/L (7-16); AST,SGOT 30 U/L (15-37); BILIRUBIN,TOTAL 0.4 mg/dL (0.0-1.0); BLOOD UREA NITROGEN 11 mg/dL (7-17); CALCIUM 9.7 mg/dL (8.4-10.2); CARBON DIOXIDE 24 mmol/L (22-30); CHLORIDE 105 mmol/L (98-107); CREATININE, serum 0.61 (0.52-1.25); GLUCOSE 112 mg/dL (74-106); MAGNESIUM 2.2 mg/dL (1.6-2.3); POTASSIUM 3.9 mmol/L (3.4-5.0); SODIUM 139 mmol/L (137-145); TOTAL PROTEIN 7.7 gm/dL (6.4-8.2)
[2019-10-14 19:52] LABS: C-REACTIVE PROTEIN < 0.5 mg/dL (0.0-0.9)
[2019-10-14 19:57] LABS: TROPONIN-I < 0.012 ng/mL (0.000-0.035)
[2019-10-14] MEDS ORDERED: TESSALON PERLE200 MG PO (23:11)
[2019-10-14] MEDS ORDERED: DOXYCYCLINE 10100 MG PO (23:11)
[2019-10-14 23:36] LABS: COLLECTION METHOD CLEAN CATCH
[2019-10-14 23:45] VITALS: BP 151/91; PULSE 89
[2019-10-15 00:13] LABS: MUCOUS Present /lpf; PH 6 (5-8); URINE APPEARANCE Hazy; URINE BACTERIA Rare /hpf; URINE BILIRUBIN Negative (NEGATIVE); URINE BLOOD 2+ (NEGATIVE); URINE COLOR Yellow; URINE GLUCOSE Negative (NEGATIVE); URINE KETONE Trace (NEGATIVE); URINE LEUKOCYTE ESTERASE Negative (NEGATIVE); URINE NITRATE Positive (NEGATIVE); URINE PROTEIN(semi-quant) Negative (NEGATIVE); URINE UROBILINOGEN Negative (NEGATIVE)
[2019-10-15] MEDS ORDERED: CEPHALEXIN500 M1 PO (12:28)
== END 2019-10-14 23:48 | disposition home or self-care (01) ==
LOC: COL.ER 18:36
PROVIDERS: Emergency Medicine
DX: J20.9 Acute bronchitis, unspecified (principal); I25.10 Atherosclerotic heart disease of native coronary artery without angina pectoris; F31.9 Bipolar disorder, unspecified; G40.909 Epilepsy, unspecified, not intractable, without status epilepticus; Z20.828 Contact with and (suspected) exposure to other viral communicable diseases; Z86.73 Personal history of transient ischemic attack (TIA), and cerebral infarction without residual deficits; Z88.0 Allergy status to penicillin; Z88.2 Allergy status to sulfonamides; Z79.82 Long term (current) use of aspirin
CPT/HCPCS: J1100; J7030

== ENCOUNTER 2019-11-29 00:11 | Emergency (ER) | payer MEDICARE ==
[~2019-11-29] VITALS: Ht 165.1 cm; Wt 84.1 kg
[~2019-11-29 00:11] MED LIST changes: +TESSALON PERLE200 MG PO
[2019-11-29 00:54] LABS: BASO # 0.1 (0.0-0.2); BASO % 0.6 % (0.0-2.0); EOS # 0.3 (0.0-0.7); EOS % 2.5 % (0-4.0); GRAN # 7.3 (1.4-6.5); HEMOGLOBIN 10.8 g/dl (12.5-16.0); MEAN CELL VOLUME 89 fl (80.0-100.0); MEAN CORPUSCULAR HEMOGLOBIN 28 pg (27.0-31.0); MEAN CORPUSCULAR HGB CONC 32 g/dl (33.0-37.0); MEAN PLATELET VOLUME 9.8 fl (7.4-10.4); MONO # 0.8 (0.1-0.6); MONO % 7.6 % (1.7-9.3); PLATELET COUNT 256 K/mm3 (130-400); RED BLOOD COUNT 3.83 M/mm3 (4.10-5.30); REDCELL DISTRIBUTION WIDTH-CV 15.8 % (11.5-14.5)
[2019-11-29 00:56] LABS: HEMATOCRIT 33.9 % (37.0-47.0)
[2019-11-29 01:04] LABS: CALCIUM 8.7 mg/dL (8.4-10.2); CREATININE, serum 0.75 (0.52-1.25); POTASSIUM 3.9 mmol/L (3.4-5.0)
[2019-11-29] MEDS ORDERED: NORCO 325 MG-51 TAB PO (02:00)
[2019-11-29 02:42] VITALS: BP 100/82; PULSE 78; TEMP 98
== END 2019-11-29 02:42 | disposition home or self-care (01) ==
LOC: COL.ER 00:11
PROVIDERS: Emergency Medicine
DX: S93.402A Sprain of unspecified ligament of left ankle, initial encounter (principal); I25.10 Atherosclerotic heart disease of native coronary artery without angina pectoris; Z88.0 Allergy status to penicillin; Z88.2 Allergy status to sulfonamides; Z79.82 Long term (current) use of aspirin; W19.XXXA Unspecified fall, initial encounter; Y92.009 Unspecified place in unspecified non-institutional (private) residence as the place of occurrence of the external cause
CPT/HCPCS: J1885

== ENCOUNTER 2020-02-23 17:34 | Emergency (ER) | payer MEDICARE ==
[~2020-02-23] VITALS: Ht 165.1 cm; Wt 86.8 kg
[2020-02-23 17:49] VITALS: TEMP 98.2
[2020-02-23 18:31] LABS: BASO # 0.1 (0.0-0.2); BASO % 0.7 % (0.0-2.0); EOS # 0.3 (0.0-0.7); EOS % 3.3 % (0-4.0); GRAN # 4.3 (1.4-6.5); GRAN % 51.7 % (42.2-75.2); HEMOGLOBIN 11.7 g/dl (12.5-16.0); LYMPH # 2.8 (1.2-3.4); LYMPH % 34.2 % (20.0-51.0); MEAN CELL VOLUME 87 fl (80.0-100.0); MEAN CORPUSCULAR HEMOGLOBIN 29 pg (27.0-31.0); MEAN CORPUSCULAR HGB CONC 33 g/dl (33.0-37.0); MEAN PLATELET VOLUME 9.7 fl (7.4-10.4); MONO # 0.8 (0.1-0.6); MONO % 9.7 % (1.7-9.3); PLATELET COUNT 328 K/mm3 (130-400); RED BLOOD COUNT 4.05 M/mm3 (4.10-5.30); REDCELL DISTRIBUTION WIDTH-CV 15.3 % (11.5-14.5)
[2020-02-23 18:40] LABS: HEMATOCRIT 35.3 % (37.0-47.0)
[2020-02-23 18:45] LABS: ALANINE AMINOTRANSFERASE 18 U/L (4-34); ALBUMIN 3.9 gm/dL (3.5-5.0); ALKALINE PHOSPHATASE 74 U/L (50-136); ANION GAP 7 mmol/L (7-16); AST,SGOT 23 U/L (15-37); BILIRUBIN,TOTAL 0.2 mg/dL (0.0-1.0); BLOOD UREA NITROGEN 13 mg/dL (7-17); CALCIUM 8.7 mg/dL (8.4-10.2); CARBON DIOXIDE 27 mmol/L (22-30); CHLORIDE 106 mmol/L (98-107); CREATININE, serum 0.67 (0.52-1.25); GLUCOSE 113 mg/dL (74-106); LIPASE 76 U/L (23-300); POTASSIUM 4.1 mmol/L (3.4-5.0); SODIUM 139 mmol/L (137-145); TOTAL PROTEIN 6.7 gm/dL (6.4-8.2)
[2020-02-23 18:58] LABS: TROPONIN-I < 0.012 ng/mL (0.000-0.035)
[2020-02-23 19:20] VITALS: BP 153/115; PULSE 79
== END 2020-02-23 19:20 | disposition home or self-care (01) ==
LOC: COL.ER 17:34
PROVIDERS: Physician Assistant
DX: R07.89 Other chest pain (principal); I10 Essential (primary) hypertension; K52.9 Noninfective gastroenteritis and colitis, unspecified; F31.9 Bipolar disorder, unspecified; G40.909 Epilepsy, unspecified, not intractable, without status epilepticus; G43.909 Migraine, unspecified, not intractable, without status migrainosus; Z88.0 Allergy status to penicillin; Z88.2 Allergy status to sulfonamides; Z87.891 Personal history of nicotine dependence; Z79.82 Long term (current) use of aspirin

== ENCOUNTER 2020-02-23 21:17 | Emergency (ER) | payer MEDICARE ==
[~2020-02-23] VITALS: Ht 165.1 cm; Wt 86.4 kg
[2020-02-23 23:14] VITALS: TEMP 98.7
[2020-02-24 00:22] VITALS: BP 148/91; PULSE 90
== END 2020-02-24 00:22 | disposition home or self-care (01) ==
LOC: COL.ER 21:17
DX: R10.11 Right upper quadrant pain (principal); I25.10 Atherosclerotic heart disease of native coronary artery without angina pectoris; I10 Essential (primary) hypertension; E78.5 Hyperlipidemia, unspecified; F41.9 Anxiety disorder, unspecified; F31.9 Bipolar disorder, unspecified; G40.909 Epilepsy, unspecified, not intractable, without status epilepticus; Z86.73 Personal history of transient ischemic attack (TIA), and cerebral infarction without residual deficits; Z88.0 Allergy status to penicillin; Z88.2 Allergy status to sulfonamides; Z79.82 Long term (current) use of aspirin
CPT/HCPCS: J1885; J2550; Q9967

== ENCOUNTER 2020-02-29 16:44 | Emergency (ER) | payer MEDICARE ==
[~2020-02-29] VITALS: Ht 165.1 cm; Wt 72.7 kg
[2020-02-29 18:05] LABS: BASO # 0.1 (0.0-0.2); BASO % 0.8 % (0.0-2.0); EOS # 0.3 (0.0-0.7); EOS % 2.7 % (0-4.0); GRAN # 5.8 (1.4-6.5); GRAN % 56.7 % (42.2-75.2); HEMOGLOBIN 11.8 g/dl (12.5-16.0); LYMPH # 3.2 (1.2-3.4); LYMPH % 31.1 % (20.0-51.0); MEAN CELL VOLUME 89 fl (80.0-100.0); MEAN CORPUSCULAR HEMOGLOBIN 29 pg (27.0-31.0); MEAN CORPUSCULAR HGB CONC 32 g/dl (33.0-37.0); MEAN PLATELET VOLUME 9.9 fl (7.4-10.4); MONO # 0.9 (0.1-0.6); MONO % 8.3 % (1.7-9.3); PLATELET COUNT 298 K/mm3 (130-400); RED BLOOD COUNT 4.12 M/mm3 (4.10-5.30); REDCELL DISTRIBUTION WIDTH-CV 15.1 % (11.5-14.5)
[2020-02-29 18:11] LABS: HEMATOCRIT 36.6 % (37.0-47.0)
[2020-02-29 18:13] LABS: ALANINE AMINOTRANSFERASE 20 U/L (4-34); ALBUMIN 3.9 gm/dL (3.5-5.0); ALKALINE PHOSPHATASE 70 U/L (50-136); ANION GAP 6 mmol/L (7-16); AST,SGOT 25 U/L (15-37); BILIRUBIN,TOTAL 0.4 mg/dL (0.0-1.0); BLOOD UREA NITROGEN 14 mg/dL (7-17); CARBON DIOXIDE 30 mmol/L (22-30); CHLORIDE 105 mmol/L (98-107); CREATININE, serum 0.83 (0.52-1.25); GLUCOSE 111 mg/dL (74-106); LIPASE 228 U/L (23-300); POTASSIUM 3.4 mmol/L (3.4-5.0); SODIUM 140 mmol/L (137-145); TOTAL PROTEIN 6.6 gm/dL (6.4-8.2)
[2020-02-29 18:14] LABS: C-REACTIVE PROTEIN < 0.5 mg/dL (0.0-0.9)
[2020-02-29 19:50] VITALS: BP 136/89; PULSE 70; TEMP 97.5
== END 2020-02-29 19:22 | disposition home or self-care (01) ==
LOC: COL.ER 16:44
PROVIDERS: Physician Assistant
DX: R10.11 Right upper quadrant pain (principal); R07.89 Other chest pain; K21.9 Gastro-esophageal reflux disease without esophagitis; F41.9 Anxiety disorder, unspecified; Z90.710 Acquired absence of both cervix and uterus; Z86.73 Personal history of transient ischemic attack (TIA), and cerebral infarction without residual deficits; Z95.5 Presence of coronary angioplasty implant and graft; Z85.038 Personal history of other malignant neoplasm of large intestine; Z87.891 Personal history of nicotine dependence; Z88.0 Allergy status to penicillin; Z88.2 Allergy status to sulfonamides; Z88.8 Allergy status to other drugs, medicaments and biological substances; Z79.82 Long term (current) use of aspirin
CPT/HCPCS: J1885; J2550; J7030

== ENCOUNTER 2020-03-08 14:23 | Emergency (ER) | payer MEDICARE ==
[~2020-03-08] VITALS: Ht 165.1 cm; Wt 86.8 kg
[2020-03-08 14:27] VITALS: TEMP 98.8
[2020-03-08 14:57] LABS: BASO # 0.1 (0.0-0.2); BASO % 0.9 % (0.0-2.0); EOS # 0.3 (0.0-0.7); EOS % 3.5 % (0-4.0); GRAN # 5.1 (1.4-6.5); GRAN % 59.7 % (42.2-75.2); HEMOGLOBIN 11.5 g/dl (12.5-16.0); LYMPH # 2.3 (1.2-3.4); LYMPH % 26.7 % (20.0-51.0); MEAN CELL VOLUME 90 fl (80.0-100.0); MEAN CORPUSCULAR HEMOGLOBIN 29 pg (27.0-31.0); MEAN CORPUSCULAR HGB CONC 32 g/dl (33.0-37.0); MEAN PLATELET VOLUME 10.1 fl (7.4-10.4); MONO # 0.8 (0.1-0.6); MONO % 8.8 % (1.7-9.3); PLATELET COUNT 292 K/mm3 (130-400); RED BLOOD COUNT 3.98 M/mm3 (4.10-5.30); REDCELL DISTRIBUTION WIDTH-CV 15.2 % (11.5-14.5)
[2020-03-08 14:58] LABS: HEMATOCRIT 35.8 % (37.0-47.0)
[2020-03-08 15:04] LABS: ALANINE AMINOTRANSFERASE 14 U/L (4-34); ALBUMIN 3.9 gm/dL (3.5-5.0); ALKALINE PHOSPHATASE 70 U/L (50-136); ANION GAP 6 mmol/L (7-16); AST,SGOT 19 U/L (15-37); BILIRUBIN,TOTAL 0.3 mg/dL (0.0-1.0); BLOOD UREA NITROGEN 12 mg/dL (7-17); CALCIUM 8.9 mg/dL (8.4-10.2); CARBON DIOXIDE 27 mmol/L (22-30); CHLORIDE 106 mmol/L (98-107); CREATININE, serum 0.79 (0.52-1.25); GLUCOSE 98 mg/dL (74-106); POTASSIUM 4.3 mmol/L (3.4-5.0); SODIUM 139 mmol/L (137-145); TOTAL PROTEIN 6.5 gm/dL (6.4-8.2)
[2020-03-08 15:16] LABS: TROPONIN-I < 0.012 ng/mL (0.000-0.035)
[2020-03-08] MEDS ORDERED: PREDNISONE50 MG PO (18:53)
[2020-03-08] MEDS ORDERED: ZITHROMAX Z PA250 MG PO (18:53)
[2020-03-08 19:01] VITALS: BP 144/96; PULSE 73
== END 2020-03-08 19:01 | disposition home or self-care (01) ==
LOC: COL.ER 14:23
PROVIDERS: Emergency Medicine
DX: R07.89 Other chest pain (principal); I25.10 Atherosclerotic heart disease of native coronary artery without angina pectoris; I10 Essential (primary) hypertension; G40.909 Epilepsy, unspecified, not intractable, without status epilepticus; Z95.9 Presence of cardiac and vascular implant and graft, unspecified; Z88.0 Allergy status to penicillin; Z88.2 Allergy status to sulfonamides; Z87.891 Personal history of nicotine dependence
CPT/HCPCS: J2405; J7512

== ENCOUNTER 2020-05-04 21:58 | Inpatient (IN) | payer MEDICARE ==
[~2020-05-04] VITALS: Ht 165.1 cm; Wt 88.8 kg
[~2020-05-04 21:58] MED LIST changes: +PREDNISONE50 MG PO
[2020-05-04 22:25] LABS: BASO # 0.1 (0.0-0.2); BASO % 0.9 % (0.0-2.0); EOS # 0.1 (0.0-0.7); EOS % 1.4 % (0-4.0); GRAN # 5.7 (1.4-6.5); GRAN % 63.3 % (42.2-75.2); HEMATOCRIT 35.1 % (37.0-47.0); LYMPH # 2.4 (1.2-3.4); LYMPH % 26.6 % (20.0-51.0); MEAN CELL VOLUME 92 fl (80.0-100.0); MEAN CORPUSCULAR HEMOGLOBIN 29 pg (27.0-31.0); MEAN CORPUSCULAR HGB CONC 31 g/dl (33.0-37.0); MONO # 0.7 (0.1-0.6); MONO % 7.5 % (1.7-9.3); PLATELET COUNT 276 K/mm3 (130-400); RED BLOOD COUNT 3.83 M/mm3 (4.10-5.30); REDCELL DISTRIBUTION WIDTH-CV 15.3 % (11.5-14.5)
[2020-05-04 22:38] LABS: ALANINE AMINOTRANSFERASE 20 U/L (4-34); ALBUMIN 3.6 gm/dL (3.5-5.0); ALKALINE PHOSPHATASE 76 U/L (50-136); ANION GAP 6 mmol/L (7-16); AST,SGOT 23 U/L (15-37); BILIRUBIN,TOTAL 0.2 mg/dL (0.0-1.0); BLOOD UREA NITROGEN 13 mg/dL (7-17); CALCIUM 8.6 mg/dL (8.4-10.2); CARBON DIOXIDE 24 mmol/L (22-30); CHLORIDE 109 mmol/L (98-107); CREATININE, serum 0.98 (0.52-1.25); GLUCOSE 134 mg/dL (74-106); LIPASE 101 U/L (23-300); POTASSIUM 3.8 mmol/L (3.4-5.0); SODIUM 138 mmol/L (137-145); TOTAL PROTEIN 6.2 gm/dL (6.4-8.2)
[2020-05-04 22:39] LABS: C-REACTIVE PROTEIN 0.5 mg/dL (0.0-0.9)
[2020-05-04 22:40] LABS: COLLECTION METHOD CATHETER
[2020-05-04 22:48] LABS: TROPONIN-I < 0.012 ng/mL (0.000-0.035)
[2020-05-04 22:52] LABS: PROLACTIN 159.9 ng/mL (3.0-18.6)
[2020-05-04 22:54] LABS: TRICYCLIC ANTIDEPRESS URINE POSITIVE
[2020-05-04 23:02] LABS: BUDDING YEAST Present /hpf; MUCOUS Present /lpf; PH 5 (5-8); SQUAMOUS EPITHELIAL 0-2 /hpf; URINE APPEARANCE Cloudy; URINE BACTERIA Many /hpf; URINE BILIRUBIN Negative (NEGATIVE); URINE BLOOD 1+ (NEGATIVE); URINE COLOR Yellow; URINE GLUCOSE Negative (NEGATIVE); URINE KETONE Negative (NEGATIVE); URINE LEUKOCYTE ESTERASE 1+ (NEGATIVE); URINE NITRATE Negative (NEGATIVE); URINE PROTEIN(semi-quant) 2+ (NEGATIVE); URINE UROBILINOGEN Negative (NEGATIVE)
[2020-05-05] VITALS (10 sets, daily range): BP systolic 69–162; BP diastolic 46–96; PULSE 72–87; TEMP 97.4–98.3
--- NOTE | 2020-05-05 00:30 | NUR ---
Received report on patient from CHRISS Dunham in the ED.
--- NOTE | 2020-05-05 00:36 | NUR ---
Patient arrived to unit via stretcher at 0036. No concerns or complaints noted at this time. VSS. 97.4 8F 87hr 24rr 125/86 95% on RA. Patient denies pain, headache, dizziness and lightheadedness, but states she would like to remain in supine position d/t lightheadedness/dizziness when she sits up. Bed rails padded with blankets for seizure precations. No belongings or valuables sent to unit with patient. ROSA M Mcintosh in room at bedside assessing patient. Admission information obtained and completed. Will resume care of patient at this time.
--- NOTE | 2020-05-05 02:05 | NUR ---
Nurse notified ROSA M Mcintosh of patient blood pressure reading of 69/46 and MAPs trending down into the low 60s. Received order for levophed gtt. Nurse stated patient only has 2 peripheral IV lines, PA okayed levophed being initiated in peripheral line. Levophed started at 0.1mcg/kg/min or 33.6mls/hr.
--- NOTE | 2020-05-05 08:37 | NUR ---
Upon assessment this am, PT is awake in bed with a smile on her face. PT requests to use the bathroom to attempt a BM, this was unsuccessful. PT denies pain and has zero complaints at this time. PT is currently resting in bed talking on phone to with call light in reach.
--- NOTE | 2020-05-05 10:28 | NUR ---
Initial visit; Patient thanked Freight Air Brake Fitter for looking in on her and offering God's blessings.
--- NOTE | 2020-05-05 11:16 | NUR ---
Computer Systems Consultant met with patient to discuss discharge planning. Patient lives in [place] with her , Willie (ph#[phone]) and four of their children. Patient reports she has five adopted children and her 19 year old child just moved out of the home. Patient advised the four children living in the home are 16, 13, 11, and 5[address] Petersen for primary care and obtains medications from [facility]. Patient states she occasionally has some difficulty affording her medications, however is a part of a discount program through [employer] along with [employer]. SW consulted Nayely Financial Counselor. Patient does not use any DME and is independent with ADLS. Patient does not currently have Advance Directives but is interested in completing DPOA-HC. SW assisted patient in completing the DPOA-HC form in which she chose to designate her , Willie. Patient did not want to choose an alternate. Patient verbalized understanding of DPOA-HC and provided her signature on the form. ART and CHRISS Berg provided witness signatures. SW then provided original and copies to patient, then placed copy on patient's chart. Patient advised she plans to return home upon discharge. SW contacted patient's , Willie who had no concerns or questions about patient returning home upon discharge. Discharge Plan: Patient to return home with family.
[2020-05-05 11:50] LABS: BASO # 0.1 (0.0-0.2); BASO % 0.6 % (0.0-2.0); EOS # 0.1 (0.0-0.7); EOS % 1.4 % (0-4.0); GRAN # 5.7 (1.4-6.5); GRAN % 64.8 % (42.2-75.2); HEMATOCRIT 34.1 % (37.0-47.0); HEMOGLOBIN 10.7 g/dl (12.5-16.0); LYMPH # 2.2 (1.2-3.4); LYMPH % 24.9 % (20.0-51.0); MEAN CELL VOLUME 92 fl (80.0-100.0); MEAN CORPUSCULAR HEMOGLOBIN 29 pg (27.0-31.0); MEAN CORPUSCULAR HGB CONC 31 g/dl (33.0-37.0); MEAN PLATELET VOLUME 9.9 fl (7.4-10.4); MONO # 0.7 (0.1-0.6); PLATELET COUNT 252 K/mm3 (130-400); RED BLOOD COUNT 3.71 M/mm3 (4.10-5.30); REDCELL DISTRIBUTION WIDTH-CV 15.4 % (11.5-14.5)
[2020-05-05 11:57] LABS: INR 1.1 (0.8-3.0); PROTHROMBIN TIME 12.5 SECONDS (9.7-12.8)
[2020-05-05 12:00] LABS: CALCIUM 7.8 mg/dL (8.4-10.2); CREATININE, serum 0.61 (0.52-1.25); POTASSIUM 3.8 mmol/L (3.4-5.0)
--- NOTE | 2020-05-05 12:15 | NUR ---
Pt arrived to medical unit room 310 from ED via WC at this time. Oriented pt to room, med rec updated. A&Ox4, PERRLA, right sided weakness noted. Lungs diminished to auscultation. Heart RRR. Reports headache 5/10, unrelieved by tylenol. Will contact provider for additional orders. Call light in reach.
[2020-05-06] VITALS (11 sets, daily range): BP systolic 115–174; BP diastolic 80–107; PULSE 68–84; TEMP 98–98.7
--- NOTE | 2020-05-06 04:42 | NUR ---
MADAY CHI APRN NOTIFIED OF POSITIVE BLOOD CULTURE. NO NEW ORDERS AT THIS TIME. PATIENT CALM AND COOPERATIVE THROUGHOUT THE NIGHT. PATIENT STATES SHE HAS NOT SLEPT VERY WELL TONIGHT. NO NEW ISSUES NOTED OR REPORTED BY PATIENT.
--- NOTE | 2020-05-06 06:31 | NUR ---
PATIENT RESTED IN BED THROUGHOUT THE NIGHT BUT SAID SHE DID NOT SLEEP WELL. ONLY COMPLAINT WAS THE MILD HEADACHE FROM WHERE SHE HIT HER HEAD AT WHEN SHE FELL. PRN TYLENOL ADMINISTERED. NO NEW ISSUES NOTED OR REPORTED.
[2020-05-06 06:44] LABS: BASO # 0.1 (0.0-0.2); EOS # 0.2 (0.0-0.7); EOS % 2.4 % (0-4.0); GRAN # 3.7 (1.4-6.5); HEMOGLOBIN 11.6 g/dl (12.5-16.0); LYMPH # 1.9 (1.2-3.4); LYMPH % 29.7 % (20.0-51.0); MEAN CELL VOLUME 90 fl (80.0-100.0); MEAN CORPUSCULAR HEMOGLOBIN 29 pg (27.0-31.0); MEAN CORPUSCULAR HGB CONC 32 g/dl (33.0-37.0); MEAN PLATELET VOLUME 10.6 fl (7.4-10.4); MONO # 0.6 (0.1-0.6); MONO % 8.7 % (1.7-9.3); PLATELET COUNT 283 K/mm3 (130-400)
[2020-05-06 06:54] LABS: CALCIUM 8.7 mg/dL (8.4-10.2); CREATININE, serum 0.61 (0.52-1.25); POTASSIUM 3.8 mmol/L (3.4-5.0)
--- NOTE | 2020-05-06 11:03 | NUR ---
PATIENT SHIFT ASSESSMENT COMPLETED BY THIS NURSE AND SN RANJITH. THIS NURSE HAS REVIEWED AND AGREES WITH STUDENT NURSES SHIFT ASSESSMENT. BONG WITH [facility] NOTIFIED TO START AN IV FOR PATIENTS MRI. CALL LIGHT IN REACH. NO NEEDS AT THIS TIME.
--- NOTE | 2020-05-06 12:45 | NUR ---
Called to re-start an IV due to patient pulled IV out. Blood on floor. escorted to chair. IV started with #20 device in patient's left forearm. After I started, patient quickly exited chair to throw trash away. I head a noise and patient was on the floor. She reports hitting her forehead about her right eye on the counter. She reports she slipped on wet floor. CHRISS Pryor and TAX EXPERT in room. VS taken. RN contacted Dr. Knight. Patient reports "I am okay." Adivsed to stay in bed and call for help. Primary care nurse informed.
--- NOTE | 2020-05-06 12:47 | NUR ---
Patient had a fall in her room that was witnessed by CHRISS Guillaume, vital signs stable, no obviousy injury noted, notified hospitalist of the fall, incident report being filed
--- NOTE | 2020-05-06 13:00 | NUR ---
NEURO CHECKS STABLE. PATIENT RESTING IN BED. PATIENT REPORTING A SLIGHT HEADACHE AT THIS TIME.
--- NOTE | 2020-05-06 14:53 | NUR ---
Primary nurse was assisted with [phone] patient care by [employer] [employer] [employer] [facility] student Ena Nelson and [employer] instructor Jessica Vergara MSN, RN.
--- NOTE | 2020-05-06 19:00 | NUR ---
PATIENT REPORT GIVEN TO NIGHT NURSE. PATIENT ASLEEP IN BED. CALL LIGHT IN REACH. BED ALARM ON.
[2020-05-07 04:16] VITALS: BP 158/89; PULSE 74; TEMP 98.4
--- NOTE | 2020-05-07 06:15 | NUR ---
NO NEW ISSUES NOTED OR REPORTED BY PATIENT.
[2020-05-07 06:55] LABS: HEMOGLOBIN 11.6 g/dl (12.5-16.0); MEAN CELL VOLUME 89 fl (80.0-100.0); MEAN CORPUSCULAR HEMOGLOBIN 28 pg (27.0-31.0); MEAN CORPUSCULAR HGB CONC 32 g/dl (33.0-37.0); MEAN PLATELET VOLUME 10.6 fl (7.4-10.4); PLATELET COUNT 306 K/mm3 (130-400); RED BLOOD COUNT 4.09 M/mm3 (4.10-5.30); REDCELL DISTRIBUTION WIDTH-CV 14.8 % (11.5-14.5)
[2020-05-07 07:05] LABS: HEMATOCRIT 36.4 % (37.0-47.0)
[2020-05-07 07:06] LABS: CALCIUM 8.8 mg/dL (8.4-10.2); CREATININE, serum 0.66 (0.52-1.25); POTASSIUM 3.7 mmol/L (3.4-5.0)
--- NOTE | 2020-05-07 07:11 | NUR ---
Patient resting in bed at this time. Denies any pain, discomfort, or needs at this time. Will continue to monitor. Call light within reach. Seizure percautions in place.
[2020-05-07 07:14] VITALS: BP 137/67; PULSE 62; TEMP 98.6
[2020-05-07] MEDS ORDERED: OMNICEF 300MG300 MG PO (10:17)
[2020-05-07] MEDS ORDERED: MELATIN 3 MG-11 TAB PO (10:23)
[2020-05-07] MEDS ORDERED: DIFLUCAN200 MG PO (10:32)
[2020-05-07] MEDS ORDERED: LAMICTAL 100MG100 MG PO (10:34)
[2020-05-07] MEDS ORDERED: LAMICTAL 25MG T25 MG PO (10:35)
--- NOTE | 2020-05-07 11:02 | NUR ---
Kitchen Food Assembler attended clinical rounds with the team. The patient's on speaker phone. The patient is medical cleared for discharge today, 05/07. The patient to be on oral antiobiotics. The patient is independent. After rounds SW met with the patient to present IM form. The patient understood and signed the form. A copy was provided to the patient and the original was placed in the chart. There are no additional needs.
[2020-05-07 11:11] VITALS: BP 140/92; PULSE 89; TEMP 99.2
--- NOTE | 2020-05-07 12:18 | NUR ---
Dr. Knight deemed patent fit for discharge. Patient education given. Patient denies any questions or concerns at this time. Patient denies any pain or dicomfort. Patient VS stable. BP 140/92, Pulse 89, Temp 98.3, Respirations 18, and SPO2 95% RA. IV DC'd catheter intact no signs of phlebitis. Patient escorted from the building by [facility] Staff.
--- NOTE | 2020-05-07 13:59 | NUR ---
Primary nurse was assisted with [phone] patient care by [employer] [employer] student Ena Nelson and [employer] instructor Jessica Vergara MSN, RN.
== END 2020-05-07 12:49 | disposition home or self-care (01) | DRG 101 ==
LOC: COL.ER 21:58 → ICU 23:35 → MEDICAL 23:35
PROVIDERS: Emergency Medicine; Hospitalist; Physician Assistant; Student in an Organized Health Care Education/Training Program; ADMIT Internal Medicine
DX: G40.909 Epilepsy, unspecified, not intractable, without status epilepticus (principal); N39.0 Urinary tract infection, site not specified; I69.951 Hemiplegia and hemiparesis following unspecified cerebrovascular disease affecting right dominant side; I95.9 Hypotension, unspecified; I10 Essential (primary) hypertension; I27.20 Pulmonary hypertension, unspecified; D63.8 Anemia in other chronic diseases classified elsewhere; I25.10 Atherosclerotic heart disease of native coronary artery without angina pectoris; Z95.5 Presence of coronary angioplasty implant and graft; E78.5 Hyperlipidemia, unspecified; F31.9 Bipolar disorder, unspecified; G47.00 Insomnia, unspecified; K44.9 Diaphragmatic hernia without obstruction or gangrene; I69.928 Other speech and language deficits following unspecified cerebrovascular disease; K21.9 Gastro-esophageal reflux disease without esophagitis; Z85.038 Personal history of other malignant neoplasm of large intestine; I25.2 Old myocardial infarction; B37.9 Candidiasis, unspecified; F12.90 Cannabis use, unspecified, uncomplicated; B96.1 Klebsiella pneumoniae [K. pneumoniae] as the cause of diseases classified elsewhere; I08.1 Rheumatic disorders of both mitral and tricuspid valves; Z90.49 Acquired absence of other specified parts of digestive tract; Z87.891 Personal history of nicotine dependence; Z91.19 Patient's noncompliance with other medical treatment and regimen; W06.XXXA Fall from bed, initial encounter; Y92.003 Bedroom of unspecified non-institutional (private) residence as the place of occurrence of the external cause
CPT/HCPCS: 99223-AI; 99232-AI; 99239; A9585; J0696; J1650; J7030; J7060; Q9967

== ENCOUNTER 2020-11-01 11:56 | Emergency (ER) | payer MEDICARE ==
[~2020-11-01] VITALS: Ht 165.1 cm; Wt 86.4 kg
[~2020-11-01 11:56] MED LIST changes: +DIFLUCAN200 MG PO; +MELATIN 3 MG-11 TAB PO
[2020-11-01 12:51] VITALS: BP 123/80; PULSE 74; TEMP 99.4
[2020-11-01 13:58] LABS: BASO # 0.1 (0.0-0.2); BASO % 1.2 % (0.0-2.0); EOS # 0.4 (0.0-0.7); EOS % 4.8 % (0-4.0); GRAN # 4.3 (1.4-6.5); GRAN % 58.9 % (42.2-75.2); HEMATOCRIT 35.9 % (37.0-47.0); HEMOGLOBIN 11.6 g/dl (12.5-16.0); LYMPH # 2.1 (1.2-3.4); LYMPH % 28.4 % (20.0-51.0); MEAN CELL VOLUME 93 fl (80.0-100.0); MEAN CORPUSCULAR HEMOGLOBIN 30 pg (27.0-31.0); MEAN CORPUSCULAR HGB CONC 32 g/dl (33.0-37.0); MEAN PLATELET VOLUME 9.9 fl (7.4-10.4); MONO # 0.5 (0.1-0.6); MONO % 6.3 % (1.7-9.3); PLATELET COUNT 283 K/mm3 (130-400); RED BLOOD COUNT 3.88 M/mm3 (4.10-5.30); REDCELL DISTRIBUTION WIDTH-CV 14.8 % (11.5-14.5)
[2020-11-01 14:05] LABS: PROTHROMBIN TIME 11.4 SECONDS (9.7-12.8)
[2020-11-01 14:17] LABS: ALANINE AMINOTRANSFERASE 11 U/L (0-55); ALBUMIN 3.5 gm/dL (3.4-4.8); ALKALINE PHOSPHATASE 80 U/L (0-750); ANION GAP 10 mmol/L; AST,SGOT 16 U/L (5-34); BILIRUBIN,TOTAL 0.2 mg/dL (0.2-1.2); BLOOD UREA NITROGEN 14 mg/dL (10-20); CALCIUM 8.9 mg/dL (8.4-10.2); CARBON DIOXIDE 24 mEq/L (23-31); CHLORIDE 105 mmol/L (98-107); GLUCOSE 103 mg/dL (70-99); POTASSIUM 4.6 mmol/L (3.5-4.5); SODIUM 139 mmol/L (136-145); TOTAL PROTEIN 6.9 gm/dL (6.2-8.1)
[2020-11-01 14:23] LABS: TROPONIN-I < 0.010 ng/mL (0.00-0.033)
[2020-11-01] MEDS ORDERED: MEDROL 4MG DOSPA4 MG PO (15:07)
[2020-11-01] MEDS ORDERED: NORCO 325 MG-51 TAB PO (15:08)
== END 2020-11-01 15:23 | disposition home or self-care (01) ==
LOC: COL.ER 11:56
PROVIDERS: Family Medicine
DX: R07.89 Other chest pain (principal); M54.16 Radiculopathy, lumbar region; I25.10 Atherosclerotic heart disease of native coronary artery without angina pectoris; I10 Essential (primary) hypertension; G40.909 Epilepsy, unspecified, not intractable, without status epilepticus; F17.200 Nicotine dependence, unspecified, uncomplicated; Z86.73 Personal history of transient ischemic attack (TIA), and cerebral infarction without residual deficits; Z95.9 Presence of cardiac and vascular implant and graft, unspecified; Z79.899 Other long term (current) drug therapy; Z79.82 Long term (current) use of aspirin; Z20.822 Contact with and (suspected) exposure to COVID-19

== ENCOUNTER 2021-01-24 13:06 | Emergency (ER) | payer MEDICARE ==
[~2021-01-24] VITALS: Ht 165.1 cm; Wt 86.4 kg
[~2021-01-24 13:06] MED LIST changes: +MEDROL 4MG DOSPA4 MG PO
[2021-01-24 13:19] VITALS: TEMP 99.9
[2021-01-24 14:21] LABS: BASO # 0.1 K/mm3 (0.0-0.2); BASO % 0.9 % (0.0-2.0); EOS # 0.2 K/mm3 (0.0-0.7); EOS % 2.6 % (0.0-4.0); GRAN % 64.8 % (42.2-75.2); HEMOGLOBIN 11.8 g/dl (12.5-16.0); LYMPH # 2.3 K/mm3 (1.2-3.4); LYMPH % 25.4 % (20.0-51.0); MEAN CELL VOLUME 90 fl (80.0-100.0); MEAN CORPUSCULAR HEMOGLOBIN 30 pg (27-31); MEAN CORPUSCULAR HGB CONC 33 g/dl (33.0-37.0); MEAN PLATELET VOLUME 9.7 fl (7.4-10.4); MONO # 0.6 K/mm3 (0.1-0.6); PLATELET COUNT 380 K/mm3 (130-400); RED BLOOD COUNT 3.99 M/mm3 (4.10-5.30); REDCELL DISTRIBUTION WIDTH-CV 15.1 % (11.5-14.5)
[2021-01-24 14:24] LABS: HEMATOCRIT 35.8 % (37.0-47.0)
[2021-01-24 14:39] LABS: ALANINE AMINOTRANSFERASE 12 U/L (0-55); ALBUMIN 3.8 gm/dL (3.4-4.8); ALKALINE PHOSPHATASE 78 U/L (40-150); ANION GAP 12 mmol/L (7-16); AST,SGOT 14 U/L (5-34); BILIRUBIN,TOTAL 0.2 mg/dL (0.2-1.2); BLOOD UREA NITROGEN 15 mg/dL (10-20); CARBON DIOXIDE 22 mmol/L (23-31); CHLORIDE 107 mmol/L (98-107); CREATININE, serum 0.77 mg/dL (0.57-1.11); GLUCOSE 125 mg/dL (70-99); POTASSIUM 3.9 mmol/L (3.5-4.5); SODIUM 141 mmol/L (136-145); TOTAL PROTEIN 6.4 gm/dL (6.2-8.1)
[2021-01-24 15:13] LABS: TROPONIN-I < 0.010 ng/mL (0.00-0.033)
[2021-01-24 15:14] LABS: PROTHROMBIN TIME 11.5 SECONDS (9.7-12.8)
[2021-01-24 15:17] LABS: PARTIAL THROMBOPLASTIN TIME 32.1 SECONDS (26.0-37.0)
[2021-01-24 15:40] VITALS: BP 160/97; PULSE 80
== END 2021-01-24 15:42 | disposition home or self-care (01) ==
LOC: COL.ER 13:06
PROVIDERS: Family Medicine
DX: R42 Dizziness and giddiness (principal); I10 Essential (primary) hypertension; I25.10 Atherosclerotic heart disease of native coronary artery without angina pectoris; E78.5 Hyperlipidemia, unspecified; F31.9 Bipolar disorder, unspecified; G40.909 Epilepsy, unspecified, not intractable, without status epilepticus; Z79.899 Other long term (current) drug therapy; Z79.82 Long term (current) use of aspirin

== ENCOUNTER → 2021-01-26 | Outpatient (CLI) | payer MEDICARE | LOC: COL.RAD 09:34 | DX: M54.16 Radiculopathy, lumbar region (principal) | CPT/HCPCS: J3301 ==

== ENCOUNTER 2021-02-07 11:59 | Emergency (ER) | payer MEDICARE ==
[~2021-02-07] VITALS: Ht 165.1 cm; Wt 81.8 kg
[2021-02-07 12:00] VITALS: TEMP 98.8
[2021-02-07 14:03] VITALS: BP 183/107; PULSE 85
== END 2021-02-07 14:43 | disposition home or self-care (01) ==
LOC: COL.ER 11:59
DX: G40.309 Generalized idiopathic epilepsy and epileptic syndromes, not intractable, without status epilepticus (principal); I10 Essential (primary) hypertension; I25.10 Atherosclerotic heart disease of native coronary artery without angina pectoris; E78.5 Hyperlipidemia, unspecified; F31.9 Bipolar disorder, unspecified; G47.00 Insomnia, unspecified; Z79.899 Other long term (current) drug therapy; Z79.82 Long term (current) use of aspirin
CPT/HCPCS: J0780; J1885

== ENCOUNTER 2021-02-23 01:01 | Emergency (ER) | payer MEDICARE ==
[~2021-02-23] VITALS: Ht 165.1 cm; Wt 81.4 kg
[2021-02-23 02:11] VITALS: TEMP 100.9
[2021-02-23 04:49] VITALS: BP 142/100; PULSE 111
== END 2021-02-23 04:49 | disposition home or self-care (01) ==
LOC: COL.ER 01:01
DX: U07.1 COVID-19 (principal); Z86.79 Personal history of other diseases of the circulatory system; Z79.82 Long term (current) use of aspirin

== ENCOUNTER 2021-04-18 13:28 | Emergency (ER) | payer MEDICARE ==
[~2021-04-18] VITALS: Ht 165.1 cm; Wt 77.7 kg
[2021-04-18 14:02] VITALS: TEMP 98.7
[2021-04-18 15:59] LABS: BASO # 0.1 K/mm3 (0.0-0.2); BASO % 0.7 % (0.0-2.0); EOS # 0.5 K/mm3 (0.0-0.7); EOS % 5.7 % (0.0-4.0); GRAN # 4.9 K/mm3 (1.4-6.5); GRAN % 57.7 % (42.2-75.2); HEMOGLOBIN 11.7 g/dl (12.5-16.0); LYMPH # 2.4 K/mm3 (1.2-3.4); LYMPH % 28.6 % (20.0-51.0); MEAN CELL VOLUME 90 fl (80.0-100.0); MEAN CORPUSCULAR HEMOGLOBIN 29 pg (27-31); MEAN CORPUSCULAR HGB CONC 32 g/dl (33.0-37.0); MEAN PLATELET VOLUME 9.5 fl (7.4-10.4); MONO # 0.6 K/mm3 (0.1-0.6); MONO % 6.9 % (1.7-9.3); PLATELET COUNT 289 K/mm3 (130-400); RED BLOOD COUNT 4.07 M/mm3 (4.10-5.30); REDCELL DISTRIBUTION WIDTH-CV 15.9 % (11.5-14.5)
[2021-04-18 16:00] LABS: HEMATOCRIT 36.5 % (37.0-47.0)
[2021-04-18 16:08] LABS: PROTHROMBIN TIME 11.1 SECONDS (9.7-12.8)
[2021-04-18 16:18] LABS: ALBUMIN 3.9 gm/dL (3.4-4.8); BILIRUBIN,TOTAL 0.2 mg/dL (0.2-1.2); C-REACTIVE PROTEIN 0.1 mg/dL (0.00-0.50); CALCIUM 8.9 mg/dL (8.4-10.2); CREATININE, serum 0.77 mg/dL (0.57-1.11); POTASSIUM 3.7 mmol/L (3.5-4.5)
[2021-04-18 16:38] LABS: PROLACTIN 9.5 ng/mL (5.18-26.53)
[2021-04-18 17:10] VITALS: BP 132/72; PULSE 85
== END 2021-04-18 17:10 | disposition home or self-care (01) ==
LOC: COL.ER 13:28
PROVIDERS: Family Medicine
DX: G40.909 Epilepsy, unspecified, not intractable, without status epilepticus (principal); M54.10 Radiculopathy, site unspecified

== ENCOUNTER → 2021-04-21 | Outpatient (CLI) | payer MEDICARE | LOC: COL.RAD 12:10 | DX: G40.309 Generalized idiopathic epilepsy and epileptic syndromes, not intractable, without status epilepticus (principal); M48.02 Spinal stenosis, cervical region; S06.9X1D Unspecified intracranial injury with loss of consciousness of 30 minutes or less, subsequent encounter; Z86.73 Personal history of transient ischemic attack (TIA), and cerebral infarction without residual deficits ==

== ENCOUNTER 2021-04-28 23:43 | Emergency (ER) | payer MEDICARE ==
[2021-04-28 23:48] VITALS: TEMP 98.7
[2021-04-29 00:55] LABS: BASO # 0.1 K/mm3 (0.0-0.2); BASO % 0.8 % (0.0-2.0); EOS # 0.1 K/mm3 (0.0-0.7); EOS % 0.7 % (0.0-4.0); GRAN # 9.2 K/mm3 (1.4-6.5); GRAN % 73.8 % (42.2-75.2); HEMATOCRIT 37.6 % (37.0-47.0); HEMOGLOBIN 12.3 g/dl (12.5-16.0); MEAN CELL VOLUME 89 fl (80.0-100.0); MEAN CORPUSCULAR HEMOGLOBIN 29 pg (27-31); MEAN CORPUSCULAR HGB CONC 33 g/dl (33.0-37.0); MEAN PLATELET VOLUME 9.2 fl (7.4-10.4); MONO % 8.2 % (1.7-9.3); PLATELET COUNT 356 K/mm3 (130-400); RED BLOOD COUNT 4.22 M/mm3 (4.10-5.30); REDCELL DISTRIBUTION WIDTH-CV 15.8 % (11.5-14.5)
[2021-04-29 01:18] LABS: ALANINE AMINOTRANSFERASE 24 U/L (0-55); ALBUMIN 4.2 gm/dL (3.4-4.8); ALKALINE PHOSPHATASE 75 U/L (40-150); ANION GAP 13 mmol/L (7-16); AST,SGOT 19 U/L (5-34); BILIRUBIN,TOTAL 0.3 mg/dL (0.2-1.2); BLOOD UREA NITROGEN 14 mg/dL (10-20); CALCIUM 9.5 mg/dL (8.4-10.2); CARBON DIOXIDE 22 mmol/L (23-31); CHLORIDE 106 mmol/L (98-107); CREATININE, serum 0.93 mg/dL (0.57-1.11); GLUCOSE 122 mg/dL (70-99); SODIUM 141 mmol/L (136-145); TOTAL PROTEIN 7.4 gm/dL (6.2-8.1)
[2021-04-29 01:19] LABS: ACETAMINOPHEN < 1.0 ug/mL (10-30); ALCOHOL(ethanol),MEDICAL < 10 mg/dL (0-10); SALICYLATE < 5.0 mg/dL (15.0-30.0)
[2021-04-29 02:15] LABS: COLLECTION METHOD CLEAN CATCH
[2021-04-29 02:26] LABS: MUCOUS Present (NOT PRESENT); PH 5 (5-8); SQUAMOUS EPITHELIAL 0-2 /hpf (0-10); URINE APPEARANCE Cloudy (CLEAR/HAZY); URINE BACTERIA Moderate /hpf (NONE SEEN); URINE BILIRUBIN Negative (NEGATIVE); URINE BLOOD 1+ (NEGATIVE); URINE COLOR Yellow (YELLOW); URINE GLUCOSE Negative (NEGATIVE); URINE KETONE Trace (NEGATIVE); URINE LEUKOCYTE ESTERASE Negative (NEGATIVE); URINE NITRATE Positive (NEGATIVE); URINE PROTEIN(semi-quant) Negative (NEGATIVE); URINE UROBILINOGEN Negative (NEGATIVE)
[2021-04-29 02:30] LABS: TRICYCLIC ANTIDEPRESS URINE POSITIVE
[2021-04-29] MEDS ORDERED: MACROBID 1100 MG/CAP PO (02:42)
[2021-04-29 05:09] VITALS: BP 158/81; PULSE 98
== END 2021-04-29 05:09 | disposition home or self-care (01) ==
LOC: COL.ER 23:43
PROVIDERS: Physician Assistant
DX: N30.91 Cystitis, unspecified with hematuria (principal); F31.9 Bipolar disorder, unspecified; Z88.0 Allergy status to penicillin; Z88.2 Allergy status to sulfonamides
CPT/HCPCS: J0696

== ENCOUNTER 2021-05-01 10:06 | Observation (INO) | payer MEDICARE ==
[~2021-05-01] VITALS: Ht 165.1 cm; Wt 82.3 kg
[2021-05-01 10:39] LABS: BASO # 0.1 K/mm3 (0.0-0.2); BASO % 1.1 % (0.0-2.0); EOS # 0.2 K/mm3 (0.0-0.7); EOS % 2.2 % (0.0-4.0); GRAN # 4.8 K/mm3 (1.4-6.5); GRAN % 63.8 % (42.2-75.2); HEMATOCRIT 37.3 % (37.0-47.0); HEMOGLOBIN 12.2 g/dl (12.5-16.0); LYMPH # 1.9 K/mm3 (1.2-3.4); LYMPH % 25.2 % (20.0-51.0); MEAN CELL VOLUME 90 fl (80.0-100.0); MEAN CORPUSCULAR HEMOGLOBIN 29 pg (27-31); MEAN CORPUSCULAR HGB CONC 33 g/dl (33.0-37.0); MEAN PLATELET VOLUME 9.8 fl (7.4-10.4); MONO # 0.6 K/mm3 (0.1-0.6); MONO % 7.3 % (1.7-9.3); PLATELET COUNT 323 K/mm3 (130-400); RED BLOOD COUNT 4.16 M/mm3 (4.10-5.30); REDCELL DISTRIBUTION WIDTH-CV 15.6 % (11.5-14.5)
[2021-05-01 10:44] LABS: INR 1.1 (0.8-3.0); PROTHROMBIN TIME 11.8 SECONDS (9.7-12.8)
[2021-05-01 10:54] LABS: ALANINE AMINOTRANSFERASE 25 U/L (0-55); ALBUMIN 4.1 gm/dL (3.4-4.8); ALCOHOL(ethanol),MEDICAL < 10 mg/dL (0-10); ALKALINE PHOSPHATASE 70 U/L (40-150); ANION GAP 16 mmol/L (7-16); AST,SGOT 24 U/L (5-34); BILIRUBIN,TOTAL 0.4 mg/dL (0.2-1.2); BLOOD UREA NITROGEN 19 mg/dL (10-20); CALCIUM 9.8 mg/dL (8.4-10.2); CARBON DIOXIDE 19 mmol/L (23-31); CHLORIDE 108 mmol/L (98-107); CREATININE, serum 1.27 mg/dL (0.57-1.11); GLUCOSE 140 mg/dL (70-99); SODIUM 143 mmol/L (136-145); TOTAL PROTEIN 7.4 gm/dL (6.2-8.1)
[2021-05-01 10:55] LABS: POTASSIUM 2.9 mmol/L (3.5-4.5)
[2021-05-01 17:22] VITALS: BP 152/94; PULSE 85; TEMP 97.9
[2021-05-01] MEDS ORDERED: ZANAFLEX2 MG PO (18:03)
[2021-05-01] MEDS ORDERED: SEROQUEL400 MG PO (18:04)
--- NOTE | 2021-05-01 19:44 | NUR ---
The patient arrived on the floor around 1700. Denies any pain, is very sad and states that she feels depressed. The medication rec is completed. The patient states "My has kept all my medications from me, and wouldn't let me have them." She said that the last time she was able to get medication from her was 04/29/21 at night and has not taken any medication since then. There is quite a bit of psychosocial issues at home with the . Report has been given to CHRISS Klein.
[2021-05-01 20:19] VITALS: BP 153/93; PULSE 93; TEMP 98
--- NOTE | 2021-05-01 20:28 | NUR ---
Pt has been very tearful this evening. She made several attempts to call her , but she then stated he changed all the numbers. Pt very concerned about her kids and feels that her has taken them all as she has tried to call them with no answer. Pt called [employer] and requested a well fair check be done. While in room, I did hear pt call and get ahold of her . Pt stated that she was going to be released in 20 minutes and asked him if she would be allowed to come home. Phone was on speaker phone, I could hear confusion in his voice. During this call, also heard [employer] arrive. Pt got off phone. Pt then told me that was going to let her go home and she was ready to go. Pt stated that she needed to get home to take her medications. Informed her that she came to the crisis center because she reported her was keeping her medications from her. Pt then responded with "oh, yeah." Discussed with pt that it would be best that she stay the night and going home could be discussed tomorrow after she gets back on her medications. Pt did call her and inform him that she would be staying. Pt has pain copmlaints in her back, states that she has bulging disks and it is the same pain she always has. No other needs verbalized, bed alarm on
--- NOTE | 2021-05-01 21:30 | NUR ---
Called and talked to pharmacy to clarify the 40 meq PO potassium that was ordered for earlier in the day. Instructed not to give and will wait for the recheck this evening. It is also mentioned in the H&P of several medications that would be continued/ordered, but they are not. Attempted to notify ROSA M Knowles. No answer, will try again later
[2021-05-01] MEDS ORDERED: LAMICTAL 100MG100 MG PO (22:17)
[2021-05-01] MEDS ORDERED: KEPPRA 500MG500 MG PO (22:59)
[2021-05-01] MEDS ORDERED: ZESTRIL 20MG TA20 MG PO (23:00)
[2021-05-01] MEDS ORDERED: ZESTRIL 10MG10 MG PO (23:00)
[2021-05-01] MEDS ORDERED: SEROQUEL 1100 MG/TAB PO (23:02)
--- NOTE | 2021-05-01 23:16 | NUR ---
Was not able to verify medications with pt. Called pts for accurate med list. Med rec updated and notified ROSA M Knowles
[2021-05-01 23:32] LABS: COLLECTION METHOD CLEAN CATCH
[2021-05-01 23:41] LABS: MUCOUS Present (NOT PRESENT); PH 5 (5-8); URINE APPEARANCE Clear (CLEAR/HAZY); URINE BACTERIA None Seen /hpf (NONE SEEN); URINE BILIRUBIN Negative (NEGATIVE); URINE BLOOD Negative (NEGATIVE); URINE COLOR Straw (YELLOW); URINE GLUCOSE Negative (NEGATIVE); URINE KETONE Negative (NEGATIVE); URINE LEUKOCYTE ESTERASE Negative (NEGATIVE); URINE NITRATE Negative (NEGATIVE); URINE PROTEIN(semi-quant) Negative (NEGATIVE); URINE RBC 0-2 /hpf (0-2); URINE UROBILINOGEN Negative (NEGATIVE)
[2021-05-01 23:48] LABS: TRICYCLIC ANTIDEPRESS URINE POSITIVE
[2021-05-02] VITALS (7 sets, daily range): BP systolic 112–149; BP diastolic 62–96; PULSE 57–89; TEMP 97.4–98.5
--- NOTE | 2021-05-02 03:30 | NUR ---
Pt has been using call light to go to the restroom, continuing to use bed alarm. Pt is very unsteady on her feet and is very drowsy. Pt stated that she has been this way for the past week but mostly just at night.
[2021-05-02 06:40] LABS: BASO # 0.1 K/mm3 (0.0-0.2); EOS # 0.3 K/mm3 (0.0-0.7); EOS % 5.8 % (0.0-4.0); GRAN # 2.6 K/mm3 (1.4-6.5); GRAN % 44.6 % (42.2-75.2); LYMPH # 2.4 K/mm3 (1.2-3.4); LYMPH % 40.3 % (20.0-51.0); MEAN CELL VOLUME 91 fl (80.0-100.0); MEAN CORPUSCULAR HGB CONC 32 g/dl (33.0-37.0); MEAN PLATELET VOLUME 9.9 fl (7.4-10.4); MONO # 0.5 K/mm3 (0.1-0.6); MONO % 8.1 % (1.7-9.3); PLATELET COUNT 297 K/mm3 (130-400); RED BLOOD COUNT 3.45 M/mm3 (4.10-5.30)
[2021-05-02 06:59] LABS: HEMATOCRIT 31.4 % (37.0-47.0); HEMOGLOBIN 10.1 g/dl (12.5-16.0); MEAN CORPUSCULAR HEMOGLOBIN 29 pg (27-31)
[2021-05-02 07:06] LABS: ALBUMIN 3.1 gm/dL (3.4-4.8); CALCIUM 8.3 mg/dL (8.4-10.2); CREATININE, serum 0.69 mg/dL (0.57-1.11); PHOSPHOROUS 3.2 mg/dL (2.3-4.7); POTASSIUM 4.4 mmol/L (3.5-4.5)
--- NOTE | 2021-05-02 07:30 | NUR ---
PT PLEASANT, AOX4, REPORTS PAIN 4/10 IN LOW BACK, REPORTS TENDERNESS IN RLE, RLE RED, ASSESSMENT PERFORMED, NO OTHER NEEDS
--- NOTE | 2021-05-02 07:40 | NUR ---
pt aox4, neuro check performed, assessement performed, pt 1 assist to bathroom, unsteady gait, fall risk precautions in place, pt taken down for mri, iv to saline lock for procedure, stickers removed from pt for mri, no other needs
--- NOTE | 2021-05-02 09:00 | NUR ---
PT RETURNED FROM MRI, VITALS TAKEN, MEDICATIONS GIVEN.
--- NOTE | 2021-05-02 12:19 | NUR ---
SAVAGE RECIEVED FROM DR. WHEELER FOR TYLENOL 650M Q8H PRN, MED GIVEN PER VERBAL ORDER READBACK. PT REPORTS HEADACHE 7/10 AT THIS TIME.
--- NOTE | 2021-05-02 14:47 | NUR ---
ART and ART student met with the patient to discuss discharge plan. The patient lives in [place] with her , Willie (ph#[phone]), and four of their nine children. The other five are grown and do not live in their home anymore. She reports needing some supervision and assistance with bathing and does not have any DME. She states that her her daughters assist her with bathing. The patient's PCP is Dr. Chapin Petersen and she receives her medications from [facility]. She states that her Medicare plan somehow got switched to [employer] and she has to pay more for her scripts. She states that her has been contacting Medicare to get her switched back to the the regular Medicare plan. The patient's DPOA-HC is in EMR and it designates her . The patient plans on returning home with her family upon discharge. PT has worked with the patient and recommend a FWW and home health. ART discussed this with the patient. The patient is interested in home health and getting a FWW from [facility]. ART provided her with Medicare.gov's list of home health agencies that serve [place]. The patient chose [facility] . ART contacted and faxed a referral to Shyla at [facility]. Shyla states that they are able to accept the patient. ART contacted and faxed and emailed the FWW order to Jadyn at [facility]. *Discharge plan: home with family and home health*
--- NOTE | 2021-05-02 17:22 | NUR ---
PT PLEASANT, AOX4, NOT DISORIENTED, BECOMING MORE ALERT THROUGHOUT SHIFT. NO OTHER NEEDS
--- NOTE | 2021-05-02 22:59 | NUR ---
Patient assessed around 194. Alert and oriented x 4, and able to make needs known. Denies pain and discomfort. Peripheral INT to left lower forearm had redness and was painful. D/C'd. New one started to left upper forearm. IV fluids running per orders. Denies SOB and dyspnea. LS CTA. HRR. Capillary refill less than 3 seconds. Non-tenting skin turgor. No edema. Voices no questions, needs, or concerns at this time. In bed with call light within reach.
[2021-05-03 03:39] VITALS: BP 110/62; PULSE 82; TEMP 98.9
--- NOTE | 2021-05-03 04:13 | NUR ---
Patient reported sharp chest pain. Stated that it started two hours ago. VSS. EKG obtained, 70s, normal sinus. Updated ROSA M Mcintosh. Given PRN APAP. Telemetry placed on patient, and morning labs obtained, as well as troponin.
[2021-05-03 04:26] LABS: BASO # 0.1 K/mm3 (0.0-0.2); BASO % 0.8 % (0.0-2.0); EOS # 0.3 K/mm3 (0.0-0.7); EOS % 4.1 % (0.0-4.0); GRAN # 4.8 K/mm3 (1.4-6.5); GRAN % 60.7 % (42.2-75.2); LYMPH # 2.1 K/mm3 (1.2-3.4); LYMPH % 26.8 % (20.0-51.0); MEAN CELL VOLUME 90 fl (80.0-100.0); MEAN CORPUSCULAR HGB CONC 33 g/dl (33.0-37.0); MEAN PLATELET VOLUME 9.6 fl (7.4-10.4); MONO # 0.6 K/mm3 (0.1-0.6); MONO % 7.3 % (1.7-9.3); PLATELET COUNT 269 K/mm3 (130-400); RED BLOOD COUNT 3.35 M/mm3 (4.10-5.30); REDCELL DISTRIBUTION WIDTH-CV 15.9 % (11.5-14.5)
[2021-05-03 04:27] LABS: HEMATOCRIT 30.2 % (37.0-47.0); HEMOGLOBIN 9.9 g/dl (12.5-16.0); MEAN CORPUSCULAR HEMOGLOBIN 30 pg (27-31)
[2021-05-03 04:39] LABS: ALBUMIN 2.9 gm/dL (3.4-4.8); CALCIUM 8.1 mg/dL (8.4-10.2); CREATININE, serum 0.7 mg/dL (0.57-1.11); MAGNESIUM 1.9 mg/dL (1.6-2.6); PHOSPHOROUS 3.1 mg/dL (2.3-4.7); POTASSIUM 3.9 mmol/L (3.5-4.5)
--- NOTE | 2021-05-03 05:07 | NUR ---
Patient reports PRN Acetaminophen is effective for pain to chest. Troponin was negative. Voices no questions, needs, or concerns at this time. In bed with call light within reach.
[2021-05-03 07:00] VITALS: BP 133/94; PULSE 78; TEMP 97.8
--- NOTE | 2021-05-03 08:30 | NUR ---
0700 shift assessment completed. Patient resting in bed, alert and oriented x4. Neuro checks completed, right sided weakness noted. Patient on telemetry and states a sharp chest pain rated 8/10. Apical pulse of 78, with normal sinus rythm. Patient reports last BM on 05/03 with difficulty. Hypo bowel sounds x4 quadrants with no tenderness noted. Call light placed within reach.
[2021-05-03] MEDS ORDERED: CLEOCIN HCL300 MG PO (10:03)
--- NOTE | 2021-05-03 10:06 | NUR ---
RACHEL delivered the FWW to the patient's room. The patient is to discharge back home with her family today, 05/03, with home health services for mcc/PT/OT from [facility] . ART attempted to notify Shyla at [facility]. SW left her a voicemail. SW to fax orders to [facility], once finalized. No additional needs at this time.
--- NOTE | 2021-05-03 10:10 | NUR ---
Initial visit; Patient thanked C Programmer for looking in on her and offering God's blessings and letting her know of the availability of [facility].
[2021-05-03 10:44] VITALS: BP 146/89; PULSE 81; TEMP 98.4
--- NOTE | 2021-05-03 11:13 | NUR ---
Telemetry D/C and loop recorder bandage removed and left open to air. Incision is clean, dry, and intact with scant amount of drainage on bangage. Pt educated not to shower for 24 Hrs, and to leave steri strips on unitl they fall off.
--- NOTE | 2021-05-03 12:20 | NUR ---
Discharge orders discussed with patient, instructed to follow up with PCP / PMH/ neuro as directed and scheduled, instructed to have outpatient EEG done at earliest availability, instructed to take meds as prescribed/ script for Cleocin sent to pharmacy for her, discussed incision site care/ restritictions with her, IV and tele removed, ambulatory and I personally escorted her out the door
== END 2021-05-03 12:30 | disposition home or self-care (01) ==
LOC: COL.ER 10:06 → MEDICAL 13:10
PROVIDERS: Nurse Practitioner Primary Care; ADMIT Internal Medicine
DX: R47.81 Slurred speech (principal); D64.9 Anemia, unspecified; I25.10 Atherosclerotic heart disease of native coronary artery without angina pectoris; G40.909 Epilepsy, unspecified, not intractable, without status epilepticus; I27.20 Pulmonary hypertension, unspecified; K21.9 Gastro-esophageal reflux disease without esophagitis; I69.351 Hemiplegia and hemiparesis following cerebral infarction affecting right dominant side; I49.1 Atrial premature depolarization; I08.1 Rheumatic disorders of both mitral and tricuspid valves; F31.9 Bipolar disorder, unspecified; Z91.81 History of falling; Z85.038 Personal history of other malignant neoplasm of large intestine; Z79.899 Other long term (current) drug therapy; Z95.5 Presence of coronary angioplasty implant and graft; F17.200 Nicotine dependence, unspecified, uncomplicated; Z79.82 Long term (current) use of aspirin
CPT/HCPCS: 99232-AI; 99239; A9575; C1764; G0378; J1644; J3480; J7030; Q9967

== ENCOUNTER 2021-05-18 14:15 | Emergency (ER) | payer MEDICARE ==
[~2021-05-18] VITALS: Ht 165.1 cm; Wt 82.7 kg
[~2021-05-18 14:15] MED LIST changes: +SEROQUEL400 MG PO; +ZANAFLEX2 MG PO; +ZESTRIL 10MG10 MG PO; +ZESTRIL 20MG TA20 MG PO
[2021-05-18 15:17] LABS: BASO # 0.1 K/mm3 (0.0-0.2); BASO % 1.1 % (0.0-2.0); EOS # 0.4 K/mm3 (0.0-0.7); EOS % 4.6 % (0.0-4.0); GRAN # 4.6 K/mm3 (1.4-6.5); GRAN % 54.1 % (42.2-75.2); HEMATOCRIT 34.5 % (37.0-47.0); HEMOGLOBIN 11.1 g/dl (12.5-16.0); LYMPH # 2.7 K/mm3 (1.2-3.4); LYMPH % 31.3 % (20.0-51.0); MEAN CELL VOLUME 92 fl (80.0-100.0); MEAN CORPUSCULAR HEMOGLOBIN 30 pg (27-31); MEAN CORPUSCULAR HGB CONC 32 g/dl (33.0-37.0); MEAN PLATELET VOLUME 9.4 fl (7.4-10.4); MONO # 0.7 K/mm3 (0.1-0.6); MONO % 8.4 % (1.7-9.3); PLATELET COUNT 351 K/mm3 (130-400); RED BLOOD COUNT 3.74 M/mm3 (4.10-5.30); REDCELL DISTRIBUTION WIDTH-CV 15.9 % (11.5-14.5)
[2021-05-18 15:30] LABS: ALANINE AMINOTRANSFERASE 18 U/L (0-55); ALBUMIN 3.7 gm/dL (3.4-4.8); ALKALINE PHOSPHATASE 70 U/L (40-150); ANION GAP 9 mmol/L (7-16); AST,SGOT 12 U/L (5-34); BILIRUBIN,TOTAL 0.2 mg/dL (0.2-1.2); BLOOD UREA NITROGEN 15 mg/dL (10-20); CALCIUM 9.1 mg/dL (8.4-10.2); CARBON DIOXIDE 25 mmol/L (23-31); CHLORIDE 109 mmol/L (98-107); CREATININE, serum 0.73 mg/dL (0.57-1.11); GLUCOSE 99 mg/dL (70-99); POTASSIUM 4.3 mmol/L (3.5-4.5); SODIUM 143 mmol/L (136-145); TOTAL PROTEIN 6.5 gm/dL (6.2-8.1)
[2021-05-18 15:36] LABS: TROPONIN-I < 0.010 ng/mL (0.00-0.033)
[2021-05-18 17:33] VITALS: BP 142/88; PULSE 79; TEMP 98.9
== END 2021-05-18 17:33 | disposition home or self-care (01) ==
LOC: COL.ER 14:15
PROVIDERS: Nurse Practitioner
DX: I10 Essential (primary) hypertension (principal); Z95.5 Presence of coronary angioplasty implant and graft
CPT/HCPCS: J0360

== ENCOUNTER 2021-07-14 09:06 | Emergency (ER) | payer MEDICARE ==
[~2021-07-14] VITALS: Ht 165.1 cm; Wt 87.3 kg
[2021-07-14 10:13] VITALS: TEMP 98.7
[2021-07-14 12:10] VITALS: BP 157/99; PULSE 74
== END 2021-07-14 12:01 | disposition home or self-care (01) ==
LOC: COL.ER 09:06
DX: G43.909 Migraine, unspecified, not intractable, without status migrainosus (principal); Z28.310 Unvaccinated for COVID-19
CPT/HCPCS: J0780; J1790; J1885

== ENCOUNTER 2021-12-08 16:20 | Emergency (ER) | payer MEDICARE ==
[~2021-12-08] VITALS: Ht 165.1 cm; Wt 84.1 kg
[2021-12-08 16:23] VITALS: TEMP 98.1
[2021-12-08 16:48] LABS: BASO # 0.1 K/mm3 (0.0-0.2); BASO % 0.8 % (0.0-2.0); EOS # 0.2 K/mm3 (0.0-0.7); EOS % 2.4 % (0.0-4.0); GRAN # 5.4 K/mm3 (1.4-6.5); GRAN % 59.7 % (42.2-75.2); HEMOGLOBIN 10.8 g/dl (12.5-16.0); LYMPH # 2.7 K/mm3 (1.2-3.4); LYMPH % 29.2 % (20.0-51.0); MEAN CELL VOLUME 91 fl (80.0-100.0); MEAN CORPUSCULAR HEMOGLOBIN 29 pg (27-31); MEAN CORPUSCULAR HGB CONC 32 g/dl (33.0-37.0); MEAN PLATELET VOLUME 9.2 fl (7.4-10.4); MONO # 0.7 K/mm3 (0.1-0.6); MONO % 7.5 % (1.7-9.3); PLATELET COUNT 398 K/mm3 (130-400); RED BLOOD COUNT 3.76 M/mm3 (4.10-5.30); REDCELL DISTRIBUTION WIDTH-CV 14.7 % (11.5-14.5)
[2021-12-08 16:49] LABS: HEMATOCRIT 34.2 % (37.0-47.0)
[2021-12-08 16:59] LABS: ALBUMIN 3.4 gm/dL (3.4-4.8); BILIRUBIN,TOTAL 0.1 mg/dL (0.2-1.2); C-REACTIVE PROTEIN 0.3 mg/dL (0.00-0.50); CALCIUM 8.9 mg/dL (8.4-10.2); CREATININE, serum 0.81 mg/dL (0.57-1.11); TOTAL PROTEIN 6.5 gm/dL (6.2-8.1)
[2021-12-08 21:37] VITALS: BP 128/77; PULSE 59
== END 2021-12-08 21:37 | disposition home or self-care (01) ==
LOC: COL.ER 16:20
PROVIDERS: Emergency Medicine
DX: G40.909 Epilepsy, unspecified, not intractable, without status epilepticus (principal); F17.200 Nicotine dependence, unspecified, uncomplicated; Z28.310 Unvaccinated for COVID-19
CPT/HCPCS: J3010; J7030

== ENCOUNTER 2023-08-06 08:11 | Emergency (ER) | payer MEDICARE ==
[~2023-08-06] VITALS: Ht 162.6 cm; Wt 72.7 kg
[~2023-08-06 08:11] MED LIST changes: +ATARAX 25MG25 MG/TAB PO; +SEROQUEL XR400 M1 PO
[2023-08-06 08:17] VITALS: TEMP 98.2
[2023-08-06] MEDS ORDERED: fentaNYL 50 MCG/ML 2 ML VIAL IV ONE (09:15)
[2023-08-06] MEDS ORDERED: LORazepam 2 MG/ML 1 ML VIAL IV ONE (09:15)
[2023-08-06 09:37] LABS: BASO # 0.1 K/mm3 (0.0-0.2); BASO % 0.9 % (0.0-2.0); EOS # 0.1 K/mm3 (0.0-0.7); EOS % 1.8 % (0.0-4.0); GRAN # 4.6 K/mm3 (1.4-6.5); GRAN % 59.1 % (42.2-75.2); HEMATOCRIT 41.5 % (37.0-47.0); LYMPH # 2.2 K/mm3 (1.2-3.4); LYMPH % 28.6 % (20.0-51.0); MEAN CELL VOLUME 89 fl (80.0-100.0); MEAN CORPUSCULAR HEMOGLOBIN 30 pg (27-31); MEAN CORPUSCULAR HGB CONC 34 g/dl (33.0-37.0); MEAN PLATELET VOLUME 10.2 fl (7.4-10.4); MONO # 0.7 K/mm3 (0.1-0.6); MONO % 9.3 % (1.7-9.3); PLATELET COUNT 282 K/mm3 (130-400); RED BLOOD COUNT 4.65 M/mm3 (4.10-5.30); REDCELL DISTRIBUTION WIDTH-CV 13.9 % (11.5-14.5)
[2023-08-06 09:41] LABS: INR 1.1 (0.8-3.0); PROTHROMBIN TIME 11.7 SECONDS (9.7-12.8)
[2023-08-06 09:44] LABS: PARTIAL THROMBOPLASTIN TIME 31.3 SECONDS (26.0-37.0)
[2023-08-06 10:11] LABS: ALANINE AMINOTRANSFERASE 14 U/L (0-55); ALBUMIN 4.2 g/dL (3.4-4.8); ALKALINE PHOSPHATASE 63 U/L (40-150); ANION GAP 12 mmol/L (7-16); AST,SGOT 11 U/L (5-34); BILIRUBIN,TOTAL 0.7 mg/dL (0.2-1.2); BLOOD UREA NITROGEN 19 mg/dL (10-20); CHLORIDE 109 mEq/L (98-107); CREATININE, serum 0.79 mg/dL (0.57-1.11); GLUCOSE 130 mg/dL (70-99); MAGNESIUM 2.1 mg/dL (1.6-2.6); POTASSIUM 3.8 mEq/L (3.5-4.5); SODIUM 142 mEq/L (136-145); TOTAL PROTEIN 7.1 g/dl (6.2-8.1)
[2023-08-06 10:25] LABS: TROPONIN-I < 0.010 ng/mL (0.00-0.033)
[2023-08-06] MEDS ORDERED: Ketorolac 15 MG/ML VIAL IV ONE (11:00)
[2023-08-06 12:43] LABS: COLLECTION METHOD CLEAN CATCH
[2023-08-06 12:59] LABS: TRICYCLIC ANTIDEPRESS URINE NEGATIVE (NEGATIVE)
[2023-08-06 13:04] LABS: URINE APPEARANCE TURBID (CLEAR/HAZY); URINE BLOOD TRACE (NEGATIVE); URINE COLOR Dark Yellow (YELLOW); URINE GLUCOSE NEGATIVE (NEGATIVE); URINE KETONE TRACE (NEGATIVE); URINE NITRATE POSITIVE (NEGATIVE); URINE PROTEIN(semi-quant) 1+ (NEGATIVE)
[2023-08-06] MEDS ORDERED: NATURE'S BLEND M3 MG PO (14:50)
[2023-08-06] MEDS ORDERED: DEPAKOTE ER 50500 MG PO (15:00)
[2023-08-06] MEDS ORDERED: CATAPRES 0.1MG0.1 MG PO (15:05)
[2023-08-06] MEDS ORDERED: MOBIC 7.5MG7.5 MG PO (15:05)
[2023-08-06] MEDS ORDERED: ZANAFLEX 4MG TAB4 MG PO (15:07)
[2023-08-06] MEDS ORDERED: PEPCID40 MG PO (15:08)
[2023-08-06] MEDS ORDERED: Acetaminophen 500 MG TAB PO ONE (19:45)
[2023-08-07] MEDS ORDERED: QUEtiapine 100 MG TAB PO SCH (00:04)
[2023-08-07] MEDS ORDERED: Lisinopril 20 MG TAB PO SCH (00:05)
[2023-08-07] MEDS ORDERED: levETIRAcetam 500 MG TAB PO SCH (00:05)
[2023-08-07] MEDS ORDERED: Atorvastatin 40 MG TAB PO SCH (00:06)
[2023-08-07] MEDS ORDERED: Carvedilol 6.25 MG TAB PO SCH (00:06)
[2023-08-07] MEDS ORDERED: lamoTRIgine 100 MG TAB PO SCH (00:06)
[2023-08-07] MEDS ORDERED: Famotidine 20 MG TAB PO SCH (00:07)
[2023-08-07] MEDS ORDERED: tiZANidine 4 MG TAB PO SCH (00:07)
[2023-08-07] MEDS ORDERED: Melatonin 3 MG TAB PO SCH (00:08)
[2023-08-07 04:43] VITALS: BP 117/79; PULSE 73
== END 2023-08-07 04:45 ==
LOC: COL.ER 08:11
PROVIDERS: Family Medicine
DX: G43.909 Migraine, unspecified, not intractable, without status migrainosus (principal); F32.A Depression, unspecified
CPT/HCPCS: J0780; J1885; J2060; J3010

== ENCOUNTER 2023-08-24 17:50 | Emergency (ER) | payer MEDICARE ==
[~2023-08-24] VITALS: Ht 167.6 cm; Wt 75.0 kg
[2023-08-24 17:50] VITALS: TEMP 98.1
[~2023-08-24 17:50] MED LIST changes: +CATAPRES 0.1MG0.1 MG PO; +MOBIC 7.5MG7.5 MG PO; +NATURE'S BLEND M3 MG PO; +PEPCID40 MG PO; +ZANAFLEX 4MG TAB4 MG PO
[2023-08-24 18:27] LABS: COLLECTION METHOD CLEAN CATCH
[2023-08-24 18:32] LABS: BASO # 0.1 K/mm3 (0.0-0.2); BASO % 0.5 % (0.0-2.0); EOS # 0.1 K/mm3 (0.0-0.7); EOS % 0.9 % (0.0-4.0); GRAN # 7.4 K/mm3 (1.4-6.5); GRAN % 70.3 % (42.2-75.2); HEMATOCRIT 41.7 % (37.0-47.0); HEMOGLOBIN 13.5 g/dl (12.5-16.0); LYMPH # 1.9 K/mm3 (1.2-3.4); LYMPH % 18.5 % (20.0-51.0); MEAN CELL VOLUME 94 fl (80.0-100.0); MEAN CORPUSCULAR HEMOGLOBIN 30 pg (27-31); MEAN CORPUSCULAR HGB CONC 32 g/dl (33.0-37.0); MEAN PLATELET VOLUME 9.8 fl (7.4-10.4); MONO % 9.5 % (1.7-9.3); PLATELET COUNT 247 K/mm3 (130-400); RED BLOOD COUNT 4.45 M/mm3 (4.10-5.30); REDCELL DISTRIBUTION WIDTH-CV 14.2 % (11.5-14.5)
[2023-08-24 18:41] LABS: INR 1.1 (0.8-3.0); PROTHROMBIN TIME 11.4 SECONDS (9.7-12.8); URINE APPEARANCE CLEAR (CLEAR/HAZY); URINE BLOOD NEGATIVE (NEGATIVE); URINE COLOR YELLOW (YELLOW); URINE GLUCOSE NEGATIVE (NEGATIVE); URINE KETONE TRACE (NEGATIVE); URINE NITRATE NEGATIVE (NEGATIVE); URINE PROTEIN(semi-quant) TRACE (NEGATIVE)
[2023-08-24] MEDS ORDERED: levETIRAcetam 1,000 MG in Syringe 1 EACH IV ONE (18:45)
[2023-08-24 18:59] LABS: ALBUMIN 3.9 g/dL (3.4-4.8); BILIRUBIN,TOTAL 0.3 mg/dL (0.2-1.2); CALCIUM 9.5 mg/dL (8.4-10.2); CREATININE, serum 0.92 mg/dL (0.57-1.11); POTASSIUM 3.9 mEq/L (3.5-4.5)
[2023-08-24] MEDS ORDERED: NS 50 ML IV SCH (19:35)
[2023-08-24] MEDS ORDERED: Iohexol 300 - 100 ML VIAL IV ONE (19:35)
[2023-08-24] MEDS ORDERED: Ketorolac 15 MG/ML VIAL IV ONE (21:30)
[2023-08-24] MEDS ORDERED: Ondansetron 4 MG/2 ML VIAL IV ONE (21:30)
[2023-08-24 22:50] VITALS: BP 162/89; PULSE 78
== END 2023-08-24 22:50 | disposition short-term general hospital (02) ==
LOC: COL.ER 17:50
PROVIDERS: Family Medicine
DX: S06.9X9A Unspecified intracranial injury with loss of consciousness of unspecified duration, initial encounter (principal); G40.909 Epilepsy, unspecified, not intractable, without status epilepticus; W10.8XXA Fall (on) (from) other stairs and steps, initial encounter
CPT/HCPCS: J1885; J1953; J2405; Q9967